=== PATIENT | female | born 1945 | race Caucasian/White ===

== ENCOUNTER 2016-07-07 16:34 | Emergency (ER) | payer BC, MEDICARE ==
[2016-07-07 16:47] VITALS: BMI 25.4
[2016-07-07 16:49] VITALS: TEMP 98.8
--- NOTE | 2016-07-07 17:39 | ED PDOC ---
Arrival/HPI - General Historian: Patient - History of Present Illness Time/Duration: 4-6 hours <Hernán Tang - Last Filed: 07/07/16 18:08> <Aniket Taylor - Last Filed: 07/07/16 18:46> - General Chief Complaint: Dizziness/Lightheaded Time Seen by Provider: 07/07/16 16:38 - History of Present Illness Narrative History of Present Illness (Text): 07/07/16 17:31 71 y/o female with hx HTN, HLD, gastritis, seasonal allergies presenting with complaints of a persistent headache which started this morning. Patient localizes her headache to the frontal and periorbital area bilaterally and states it is aching in nature. She denies any aura, focal deficits, fever, chills or head trauma. Patient also notes left distal extremity and hand paresthesias earlier today. Numbness and tingling were associated with an episode of anxiety. These symptoms lasted about 1 to 2 hours before resolving spontaneously. In addition the patient is complaining of bilateral eye redness, itching and watering. She was treated by an ophthamologist about 3 weeks ago with what she thinks were antibiotic eye drops for 7 days. The patient experienced relief of symptoms for about one week with the medication before they returned. Patient was admitted here for similar complaints on 02/18/17. The patient was seen by neurology at the time and determined to be suffering from tension headaches complicated by chronic sinusitis. She was prescribed Fioricet and Flonase. (Hernán Tang) Past Medical History - Provider Review Nursing Documentation Reviewed: Yes - Infectious Disease Hx of Infectious Diseases: None - Tetanus Immunization Tetanus Immunization: Unknown - Reproductive Menopause: Yes - Cardiac Hx Hypertension: Yes - Pulmonary Hx Respiratory Disorders: No - Neurological Hx Dizziness: Yes - HEENT Hx HEENT Disorder: No - Renal Hx Renal Disorder: No - Endocrine/Metabolic Hx Endocrine Disorders: No - Hematological/Oncological Hx Blood Disorders: No - Integumentary Hx Dermatological Disorder: No - Musculoskeletal/Rheumatological Hx Arthritis: Yes - Gastrointestinal Hx Diverticulitis: Yes Hx Gastroesophageal Reflux: Yes Other/Comment: abdominal pain - Genitourinary/Gynecological Hx Genitourinary Disorders: No - Psychiatric Hx Anxiety: Yes Hx Depression: Yes Hx Substance Use: No - Past Surgical History Past Surgical History: Non-Contributing - Surgical History Other/Comment: 1989' broken nose surgery. 1999' right shoulder surgery. 2001 Tummy tuck - Anesthesia Hx Anesthesia: Yes Hx Anesthesia Reactions: No Hx Malignant Hyperthermia: No - Suicidal Assessment Feels Threatened In Home Enviroment: No <Hernán Tang - Last Filed: 07/07/16 18:08> Family/Social History - Physician Review Nursing Documentation Reviewed: Yes Family/Social History: Unknown Family HX Smoking Status: Former Smoker Hx Alcohol Use: Yes Hx Substance Use: No Hx Substance Use Treatment: No <Hernán Tang - Last Filed: 07/07/16 18:08> Allergies/Home Meds <Hernán Tang - Last Filed: 07/07/16 18:08> <Aniket Taylor - Last Filed: 07/07/16 18:46> Allergies/Adverse Reactions: Allergies Penicillins Allergy (Verified 06/22/15 03:02) RASH Home Medications: Home Meds Medication Instructions Recorded Confirmed Cholecalciferol (Vitamin D3) 2,000 iu PO DAILY 10/27/14 07/07/16 [Vitamin D3] Losartan [Cozaar] 20 mg PO DAILY 10/27/14 07/07/16 Famotidine [Pepcid] 20 mg PO DAILY 02/19/16 07/07/16 Simvastatin [Zocor] 20 mg PO DAILY 07/07/16 07/07/16 Review of Systems - Physician Review All systems were reviewed & negative as marked: Yes - Review of Systems Constitutional: absent: Fatigue, Fevers Eyes: Other (itching, tearing ). absent: Vision Changes, Photophobia Respiratory: absent: SOB, Cough, Sputum Cardiovascular: absent: Chest Pain, GONGORA Gastrointestinal: absent: Abdominal Pain, Diarrhea, Nausea, Vomiting Genitourinary Female: absent: Dysuria, Frequency, Hematuria Musculoskeletal: absent: Back Pain, Neck Pain Skin: absent: Rash, Pruritis, Skin Lesions Neurological: Headache. absent: Dizziness, Focal Weakness, Disequilibrium, Seizure Psychiatric: Anxiety. absent: Depression <Hernán Tang - Last Filed: 07/07/16 18:08> Physical Exam Vital Signs Reviewed: Yes Temperature: Afebrile Blood Pressure: Normal Pulse: Regular Respiratory Rate: Normal Appearance: Positive for: Well-Appearing, Non-Toxic Pain Distress: None Mental Status: Positive for: Alert and Oriented X 3 Finger Stick Blood Glucose: 89 - Systems Exam Head: Present: Atraumatic, Normocephalic Pupils: Present: PERRL Extroacular Muscles: Present: EOMI Conjunctiva: Present: Injected (bilateral ), Other (excessive tearing ) Mouth: Present: Moist Mucous Membranes Neck: Present: Normal Range of Motion. No: Meningeal Signs Respiratory/Chest: Present: Clear to Auscultation, Good Air Exchange. No: Respiratory Distress Cardiovascular: Present: Regular Rate and Rhythm, Normal S1, S2 Abdomen: Present: Normal Bowel Sounds. No: Tenderness, Distention Upper Extremity: Present: Normal Inspection, Normal ROM, NORMAL PULSES. No: Cyanosis, Edema Lower Extremity: Present: Normal Inspection, NORMAL PULSES. No: Edema, CALF TENDERNESS Neurological: Present: GCS=15, CN II-XII Intact, Speech Normal, Motor Func Grossly Intact Skin: Present: Warm, Dry Psychiatric: Present: Alert, Oriented x 3, Normal Insight, Normal Concentration <Hernán Tang - Last Filed: 07/07/16 18:08> Vital Signs Temp Pulse Resp BP Pulse Ox 07/07/16 17:00 136/89 07/07/16 16:47 98.8 F 79 17 148/79 97 Medical Decision Making <Hernán Tang - Last Filed: 07/07/16 18:08> <Aniket Taylor - Last Filed: 07/07/16 18:46> ED Course and Treatment: 07/07/16 17:41 71 y/o female with hx HTN, gastritis, seasonal allergies presenting with a tension headache related to chronic sinusitis and seasonal allergies. Patient has been diagnosed with tension headaches in the past by neurology. The distribution and presentation of patients complaints are consistent with this diagnosis. In regards to patient's injected conjunctiva, she will need to be seen by her ophthamologist for re-evaluation. Will treat patient's headache with Tylenol and reassess. Left distal extremity parasthesias are now resolved and were likely secondary to anxiety/panic attack event. (Hernán Tang) 07/07/16 18:43 71-year-old female presents the emergency department with bilateral eye redness , frontal head/sinus pressure. Patient states that she has had these symptoms in the past, and has been diagnosed with allergy symptoms and headaches. Patient states that the symptoms are identical to previous. Since the headache is not the worse headache of her life and she has had this type of headache in the past. Patient was complaining of unilateral upper extremity numbness, states this came on during her anxiety/panic attack, states the symptoms are similar to her previous anxiety attacks which she has had in the past. On examination patient has no focal neurological deficits. Patient seen and examined with resident Came up with treatment and disposition plan with resident (Aniket Taylor) - Medication Orders Current Medication Orders: Discontinued Medications Acetaminophen (Tylenol 325mg Tab) 650 mg PO STAT STA Stop: 07/07/16 17:28 Last Admin: 07/07/16 17:37 Dose: 650 MG MAR Pain/Vitals Document 07/07/16 17:37 EWO (Rec: 07/07/16 17:39 EWO [id number]) Pain Reassessment Is This A Pain ReAssessment? No Sleep Is patient sleeping during reassessment? No Presence of Pain Presence of Pain Yes Pain Scale Used Pain Scale Used Numeric Location Pain Location Body Power[employer] Description Constant Intensity 4 Scale Used Numeric Disposition/Present on Arrival - Present on Arrival History of DVT/PE: No History of Uncontrolled Diabetes: No Urinary Catheter: No History of Decub. Ulcer: No History Surgical Site Infection Following: None <Hernán Tang - Last Filed: 07/07/16 18:08> - Present on Arrival Any Indicators Present on Arrival: Yes - Disposition Have Diagnosis and Disposition been Completed?: Yes Disposition Time: 18:46 Patient Plan: Discharge <Aniket Taylor - Last Filed: 07/07/16 18:46> - Disposition Diagnosis: Headache Disposition: HOME/ ROUTINE Patient Problems: Current Active Problems Problem Status Diagnosed Abdominal pain Acute GI bleed Acute Nausea, vomiting, and diarrhea Acute Condition: GOOD Discharge Instructions (ExitCare): Tension Headache (ED) Additional Instructions: Please see your ophthamologist for continued management of your eye symptoms. Please see your family physician for continued managemen of your headaches. You are prescribed an antibiotic eye ointment called Erythromycin. Apply this gel to both eyes twice daily for 7 days. You are prescribed Flonase nasal spray. Apply 2 sprays in each nostril daily. Prescriptions: Erythromycin 0.5% [Ilytocin] 3.5 gm OP Q12H #1 tube Fluticasone Propionate [Flonase] 2 spr IN DAILY #1 bottle Referrals: Javed Urban [Primary Care Provider] - Follow up with primary
[2016-07-07 18:44] VITALS: BP 150/74; PULSE 82; RESP 18; O2SAT 99
--- NOTE | 2016-07-08 12:17 | CARD ---
APPROVED REPORT EKG Measurement Heart [id number] <Conclusion> Normal sinus rhythm Normal ECG
== END 2016-07-07 18:44 | disposition home or self-care (01) ==
LOC: ED 16:34
DX: R51 Headache (principal); I10 Essential (primary) hypertension; K21.9 Gastro-esophageal reflux disease without esophagitis; Z87.891 Personal history of nicotine dependence

== ENCOUNTER 2016-10-20 23:04 | Emergency (ER) | payer BC, MEDICARE ==
[2016-10-20 23:05] VITALS: BMI 25.4
[2016-10-20 23:22] VITALS: RESP 18; TEMP 97.8; O2SAT 95
--- NOTE | 2016-10-20 23:32 | ED PDOC ---
Arrival/HPI - General Chief Complaint: Back Pain Time Seen by Provider: 10/20/16 23:22 Historian: Patient - History of Present Illness Narrative History of Present Illness (Text): 10/20/16 23:30 71 year old female, whose past medical history includes history of hypertension , hyperlipidemia, and gastritis, who presents to the emergency department complaining of right-sided lower back pain for 3 days. Patient states she began experiencing right-sided lower back pain 3 days prior but worsened tonight after getting out of bed. Patient states pain is sharp and radiates down her right leg. She reports she has not taken medication for pain. Patient denies of any chest pain, abdominal pain, nausea, vomiting, diarrhea, shortness of breath, urinary symptoms, fever, chills, or any other complaints. Time/Duration: < week (3 days) Symptom Onset: Gradual Symptom Course: Worsening Quality: Other (Sharp) Activities at Onset: Light Context: Home Past Medical History - Provider Review Nursing Documentation Reviewed: Yes - Infectious Disease Hx of Infectious Diseases: None - Tetanus Immunization Tetanus Immunization: Unknown - Cardiac Hx Hypertension: Yes - Pulmonary Hx Respiratory Disorders: No - Neurological Hx Dizziness: Yes - HEENT Hx HEENT Disorder: No - Renal Hx Renal Disorder: No - Endocrine/Metabolic Hx Endocrine Disorders: No - Hematological/Oncological Hx Blood Disorders: No - Integumentary Hx Dermatological Disorder: No - Musculoskeletal/Rheumatological Hx Arthritis: Yes - Gastrointestinal Hx Diverticulitis: Yes Hx Gastroesophageal Reflux: Yes Other/Comment: abdominal pain - Genitourinary/Gynecological Hx Genitourinary Disorders: No - Psychiatric Hx Anxiety: Yes Hx Depression: Yes Hx Substance Use: No - Past Surgical History Past Surgical History: Non-Contributing - Surgical History Other/Comment: 1989' broken nose surgery. 1999's right shoulder surgery. 2001 Tummy tuck - Anesthesia Hx Anesthesia: Yes Hx Anesthesia Reactions: No Hx Malignant Hyperthermia: No - Suicidal Assessment Feels Threatened In Home Enviroment: No Family/Social History - Physician Review Nursing Documentation Reviewed: Yes Family/Social History: No Known Family HX Smoking Status: Former Smoker Hx Alcohol Use: Yes Hx Substance Use: No Hx Substance Use Treatment: No Allergies/Home Meds Allergies/Adverse Reactions: Allergies Penicillins Allergy (Verified 06/22/15 03:02) RASH Home Medications: Home Meds Medication Instructions Recorded Confirmed Cholecalciferol (Vitamin D3) 2,000 iu PO DAILY 10/27/14 10/20/16 [Vitamin D3] Losartan [Cozaar] 20 mg PO DAILY 10/27/14 10/20/16 Famotidine [Pepcid] 20 mg PO DAILY 02/19/16 10/20/16 Simvastatin [Zocor] 20 mg PO DAILY 07/07/16 10/20/16 Review of Systems - Physician Review All systems were reviewed & negative as marked: Yes - Review of Systems Constitutional: Normal. absent: Fevers, Night Sweats Respiratory: Normal. absent: SOB, Cough Cardiovascular: Normal. absent: Chest Pain Gastrointestinal: Normal. absent: Abdominal Pain, Nausea, Vomiting Genitourinary Female: Normal. absent: Dysuria, Frequency, Hematuria, Urine Output Changes Musculoskeletal: Back Pain (right-lower back pain radiating to right lower extremity) Neurological: Normal. absent: Headache, Dizziness Physical Exam Vital Signs Reviewed: Yes Vital Signs Temp Pulse Resp BP Pulse Ox 10/21/16 01:00 67 18 125/74 95 10/20/16 23:18 97.8 F 75 18 151/78 H 95 Temperature: Afebrile Blood Pressure: Hypertensive Pulse: Regular Respiratory Rate: Normal Appearance: Positive for: Well-Appearing, Non-Toxic. No: Comfortable Pain Distress: None Mental Status: Positive for: Alert and Oriented X 3 - Systems Exam Head: Present: Atraumatic, Normocephalic Pupils: Present: PERRL Extroacular Muscles: Present: EOMI Conjunctiva: Present: Normal Mouth: Present: Moist Mucous Membranes Neck: Present: Normal Range of Motion Respiratory/Chest: Present: Clear to Auscultation, Good Air Exchange. No: Respiratory Distress, Accessory Muscle Use Cardiovascular: Present: Regular Rate and Rhythm, Normal S1, S2. No: Murmurs Abdomen: Present: Normal Bowel Sounds. No: Tenderness, Distention, Peritoneal Signs Back: Present: Pain with Leg Raise (Pain with right leg raise). No: CVA Tenderness, Midline Tenderness Upper Extremity: Present: Normal Inspection. No: Cyanosis, Edema Lower Extremity: Present: Normal Inspection, NORMAL PULSES, Normal ROM, Neurovascularly Intact, Capillary Refill < 2 s. No: Edema, Cyanosis, Tenderness , Swelling, Erythema, Deformity, Temperature Abnormalties Neurological: Present: GCS=15, CN II-XII Intact, Speech Normal, Motor Func Grossly Intact, Normal Sensory Function Skin: Present: Warm, Dry, Normal Color. No: Rashes Psychiatric: Present: Alert, Oriented x 3, Normal Insight, Normal Concentration Medical Decision Making ED Course and Treatment: 10/20/16 23:32 Impression: 71 year old female with sharp right lower back pain radiating to right leg. Differential Diagnosis included but are not limited to: sciatica vs. muscular strain Plan: -- CT Lumbar Spine -- Toradol -- Labs -- Urinalysis -- Reassess and disposition Prior Visits: Notes and results from previous visits were reviewed. Patient was last seen in the emergency department on 07/07/2016 complaining of persistent headache. Pt was d/c home. Progress Notes: 10/21/16 00:56 CT Lumbar Spine: Vertebrae: No acute fracture. Mild anterolisthesis L5 on S1. Facet osteoarthrosis within lower lumbar spine. Discs/spinal canal/neural foramina: Minimal spondylosis. Minimal disc bulges. Mild central canal stenosis at L4-L5 level. Mild neuroforaminal narrowing at L3-L4, L4-L5 levels. Other bones/joints: Mild degenerative changes of sacroiliac joints. Soft tissues: Unremarkable. Vasculature: Minimal atherosclerotic disease. Liver: Small hepatic calcification. Hepatic cyst. Kidneys and ureters: Few small calculi within LEFT kidney. Few peripelvic cysts. Stomach and bowel: Colonic diverticula. Reproductive: Hysterectomy. IMPRESSION: 1. No fracture. 2. If back pain persists, consider MRI for further evaluation. 3. Incidental/non-acute findings are described above. 10/21/16 00:58 On reevaluation the patient feels better and is in no acute distress. I have discussed the results and plan with the patient, who expresses understanding. Patient given the opportunity to ask question, all questions were answered and there is agreement with the plan to discharge the patient home. Patient is stable for discharge. Patient was instructed to follow up with physician/clinic in 1-2 days or return if symptoms persist/worsen or new concerning symptoms arise. Re-evaluation Time: 00:58 Reassessment Condition: Re-examined, Improved - Lab Interpretations Lab Results: 10/20/16 23:30 10/20/16 23:30 Lab Results 10/21/16 00:20: Urine Color Straw, Urine Appearance Clear, Urine pH 6.5, Ur Specific [place] <= 1.005, Urine Protein Negative, Urine Glucose (UA) Negative, Urine Ketones Negative, Urine Blood Small H, Urine Nitrate Negative, Urine Bilirubin Negative, Urine Urobilinogen 0.2, Ur Leukocyte Esterase Small H, Urine RBC 5 - 10, Urine WBC 2 - 5, Ur Epithelial Cells 6 - 8 10/20/16 23:30: Sodium 138, Potassium 4.2, Chloride 103, Carbon Dioxide 27, Anion Gap 12, BUN 20, Creatinine 0.7, Est GFR ( Amer) > 60, Est GFR (Non- Af Amer) > 60, Random Glucose 103, Calcium 9.4, Total Bilirubin 0.5, AST 38, ALT 33, Alkaline Phosphatase 109, Total Protein 7.2, Albumin 4.1, Globulin 3.1, Albumin/Globulin Ratio 1.3 10/20/16 23:30: WBC 5.5, RBC 3.66, Hgb 11.1 L, Hct 33.3 L, MCV 91.0, MCH 30.3, MCHC 33.3, RDW 13.2, Plt Count 229, MPV 9.5, Gran % 66.9, Lymph % (Auto) 23.6, Andrews % (Auto) 6.4 H, Eos % (Auto) 2.9, Baso % (Auto) 0.2, Gran # 3.68, Lymph # 1.3, Andrews # 0.4, Eos # 0.2, Baso # 0.01 I have reviewed the lab results: Yes - RAD Interpretation Radiology Orders: 10/20/16 23:30 LUMBAR SPINE W/O CONTRAST [CT] Stat Accounting System Expert: Radiologist - Medication Orders Current Medication Orders: Discontinued Medications Ketorolac Tromethamine (Toradol) 15 mg IVP ONCE ONE Stop: 10/20/16 23:32 Last Admin: 10/20/16 23:35 Dose: 15 mg - Cristianibe Statement The provider has reviewed the documentation as recorded by the Nataly Abdalla training under Zahida Caballero All medical record entries made by the Nataly were at my direction and personally dictated by me. I have reviewed the chart and agree that the record accurately reflects my personal performance of the history, physical exam, medical decision making, and the department course for this patient. I have also personally directed, reviewed, and agree with the discharge instructions and disposition. Disposition/Present on Arrival - Present on Arrival Any Indicators Present on Arrival: No History of DVT/PE: No History of Uncontrolled Diabetes: No Urinary Catheter: No History of Decub. Ulcer: No History Surgical Site Infection Following: None - Disposition Have Diagnosis and Disposition been Completed?: Yes Diagnosis: Sciatic leg pain Disposition: HOME/ ROUTINE Disposition Time: 00:58 Condition: GOOD Discharge Instructions (ExitCare): Sciatica (ED) Prescriptions: Tramadol HCl [Ultram] 50 mg PO QID #10 tab Referrals: Javed Urban [Primary Care Provider] - Follow up with primary
[2016-10-20 23:51] LABS: BASO # 0.01 K/mm3 (0.0-2.0); BASO % 0.2 % (0.0-3.0); EOS # 0.2 (0.0-0.7); EOS % 2.9 % (1.5-5.0); GRAN # 3.68 (1.4-6.5); GRAN % 66.9 % (50.0-68.0); HEMOGLOBIN 11.1 gm/dL (12.0-16.0); LYMPH # 1.3 (1.2-3.4); LYMPH % 23.6 % (22.0-35.0); MEAN CORPUSCULAR HEMOGLOBIN 30.3 pg (25.0-35.0); MEAN CORPUSCULAR HGB CONC 33.3 g/dl (31.0-37.0); MEAN PLATELET VOLUME 9.5 fl (7.0-11.0); MONO # 0.4 (0.1-0.6); MONO % 6.4 % (1.0-6.0); PLATELET COUNT 229 10^3/uL (120.0-450.0); RBC 3.66 10^6/uL (3.5-6.1); RED CELL DISTRIBUTION WIDTH 13.2 % (11.5-14.5); WHITE BLOOD COUNT 5.5 10^3/ul (4.5-11.0)
[2016-10-21 00:02] LABS: ALB/GLOB RATIO 1.3 (1.1-1.8); ALBUMIN 4.1 g/dL (3.0-4.8); ALT/SGPT 33 U/L (7-56); AST/SGOT 38 U/L (15-39); BLOOD UREA NITROGEN 20 mg/dL (7-21); CALCIUM 9.4 mg/dL (8.4-10.5); GFR AFRICAN-AMERICAN > 60; GFR NON-AFRICAN AMERICAN > 60
[2016-10-21 00:34] LABS: PH,URINE 6.5 (4.7-8.0); URINE BILIRUBIN NEGATIVE (NEGATIVE); URINE BLOOD SMALL (NEGATIVE); URINE GLUCOSE (UA) NEGATIVE (NEGATIVE); URINE LEUKOCYTE ESTERASE SMALL Leu/uL (NEGATIVE); URINE NITRATE NEGATIVE (NEGATIVE); URINE PROTEIN NEGATIVE mg/dL (<30 mg/dL); URINE UROBILINOGEN 0.2 E.U./dL (<1 E.U./dL)
--- NOTE | 2016-10-21 00:36 | CT ---
EXAM: CT Lumbar Spine Without Intravenous Contrast CLINICAL HISTORY: 71 years old, female; Pain; Low back pain TECHNIQUE: Axial computed tomography images of the lumbar spine without intravenous contrast. This CT exam was performed using one or more of the following dose reduction techniques: automated exposure control, adjustment of the mA and/or kV according to patient size, and/or use of iterative reconstruction technique. Coronal and sagittal reformatted images were created and reviewed. COMPARISON: US - CAROTID VERTEBRAL DUPLEX 02/21/2016 11:15:46 AM FINDINGS: Vertebrae: No acute fracture. Mild anterolisthesis L5 on S1. Facet osteoarthrosis within lower lumbar spine. Discs/spinal canal/neural foramina: Minimal spondylosis. Minimal disc bulges. Mild central canal stenosis at L4-L5 level. Mild neuroforaminal narrowing at L3-L4, L4-L5 levels. Other bones/joints: Mild degenerative changes of sacroiliac joints. Soft tissues: Unremarkable. Vasculature: Minimal atherosclerotic disease. Liver: Small hepatic calcification. Hepatic cyst. Kidneys and ureters: Few small calculi within LEFT kidney. Few peripelvic cysts. Stomach and bowel: Colonic diverticula. Reproductive: Hysterectomy. IMPRESSION: 1. No fracture. 2. If back pain persists, consider MRI for further evaluation. 3. Incidental/non-acute findings are described above.
[2016-10-21 00:40] LABS: URINE APPEARANCE CLEAR (CLEAR); URINE COLOR STRAW (YELLOW)
[2016-10-21 01:01] VITALS: BP 125/74; PULSE 67
== END 2016-10-21 01:10 | disposition home or self-care (01) ==
LOC: ED 23:04
DX: M54.30 Sciatica, unspecified side (principal); Z87.891 Personal history of nicotine dependence; I10 Essential (primary) hypertension; E78.5 Hyperlipidemia, unspecified
CPT/HCPCS: 72131; 80053; 81001; 85025; 87086; 96374; 99283; J1885

== ENCOUNTER 2017-06-08 05:49 | Emergency (ER) | payer BC, MEDICARE ==
[2017-06-08 06:00] VITALS: BMI 26.4
[2017-06-08 06:01] VITALS: TEMP 99.1
--- NOTE | 2017-06-08 06:50 | ED PDOC ---
Arrival/HPI - General Chief Complaint: Shortness Of Breath Time Seen by Provider: 06/08/17 06:41 Historian: Patient - History of Present Illness Narrative History of Present Illness (Text): 72F pmhx significant for HTN, HLD, [place] [facility] [place] w/ difficulty breathing, shortness of breath, and the "feeling of phlem stuck in the middle of the chest " that started on Saturday (06/04/17) for 4 days. Patient states that she was traveling from [facility] when the coughing started. Clear productive cough. Denies pleuritic chest pain. Denies current: fevers, chills, chest pain, nausea, vomiting, diarrhea, changes in urinary/bowel habits, vision changes, numbness/tingling in extremities PMH: stated above PSH: Shoulder sgx, hysterectomy, tubal ligation, liposuction, facelift ALL: NKDA Socialhx: Denies tobacco, etoh, recreational drug use Time/Duration: < week Symptom Course: Unchanged Past Medical History - Provider Review Nursing Documentation Reviewed: Yes - Travel History Have you recently traveled outside [place] w/in the past 3 mons?: Yes If Yes, travel location?: [facility] - Infectious Disease Hx of Infectious Diseases: None - Tetanus Immunization Tetanus Immunization: Unknown - Cardiac Hx Hypertension: Yes - Pulmonary Hx Respiratory Disorders: No - Neurological Hx Dizziness: Yes - HEENT Hx HEENT Disorder: No - Renal Hx Renal Disorder: No - Endocrine/Metabolic Hx Endocrine Disorders: No - Hematological/Oncological Hx Blood Disorders: No - Integumentary Hx Dermatological Disorder: No - Musculoskeletal/Rheumatological Hx Arthritis: Yes - Gastrointestinal Hx Diverticulitis: Yes Hx Gastroesophageal Reflux: Yes Other/Comment: abdominal pain - Genitourinary/Gynecological Hx Genitourinary Disorders: No - Psychiatric Hx Anxiety: Yes Hx Depression: Yes Hx Substance Use: No - Past Surgical History Past Surgical History: Non-Contributing - Surgical History Other/Comment: 1989's broken nose surgery. 1999' right shoulder surgery. 2001 Tummy tuck - Anesthesia Hx Anesthesia: Yes Hx Anesthesia Reactions: No Hx Malignant Hyperthermia: No - Suicidal Assessment Feels Threatened In Home Enviroment: No Family/Social History - Physician Review Nursing Documentation Reviewed: Yes Family/Social History: Other (non-contributory) Smoking Status: Former Smoker Hx Alcohol Use: Yes Frequency of alcohol use: Socially Hx Substance Use: No Hx Substance Use Treatment: No Allergies/Home Meds Allergies/Adverse Reactions: Allergies Penicillins Allergy (Verified 06/08/17 05:57) RASH Home Medications: Home Meds Medication Instructions Recorded Confirmed Cholecalciferol (Vitamin D3) 2,000 iu PO DAILY 10/27/14 06/08/17 [Vitamin D3] Losartan [Cozaar] 20 mg PO DAILY 10/27/14 06/08/17 Famotidine [Pepcid] 20 mg PO DAILY 02/19/16 06/08/17 Simvastatin [Zocor] 20 mg PO DAILY 07/07/16 06/08/17 Review of Systems - Physician Review All systems were reviewed & negative as marked: Yes - Review of Systems Constitutional: absent: Fatigue, Weight Change, Fevers Eyes: absent: Vision Changes, Photophobia ENT: absent: Hearing Changes, Tinnitus Respiratory: SOB, Cough, Sputum (clear). absent: Wheezing Cardiovascular: absent: Chest Pain, Palpitations, Edema, Calf Pain Gastrointestinal: absent: Abdominal Pain, Stool Changes, Constipation, Vomiting Genitourinary Female: absent: Dysuria Musculoskeletal: absent: Arthralgias, Neck Pain Neurological: Headache (2/2 increased coughing) Endocrine: absent: Polyuria, Polydipsia Hemo/Lymphatic: absent: Adenopathy Psychiatric: absent: Anxiety Physical Exam Vital Signs Reviewed: Yes Vital Signs Temp Pulse Resp BP Pulse Ox 06/08/17 06:10 22 97 06/08/17 06:00 99.1 F 83 14 122/89 97 Temperature: Afebrile Blood Pressure: Normal Pulse: Regular Respiratory Rate: Normal Appearance: Positive for: Well-Appearing, Non-Toxic, Comfortable Pain Distress: None Mental Status: Positive for: Alert and Oriented X 3 - Systems Exam Head: Present: Atraumatic, Normocephalic Pupils: Present: PERRL Extroacular Muscles: Present: EOMI Conjunctiva: Present: Normal Mouth: Present: Moist Mucous Membranes Nose (Internal): Present: Other (Maxillary sinus tenderness) Neck: Present: Normal Range of Motion Respiratory/Chest: Present: Clear to Auscultation, Good Air Exchange, Decreased Breath Sounds (base of lungs). No: Respiratory Distress, Accessory Muscle Use, Wheezes Cardiovascular: Present: Regular Rate and Rhythm, Normal S1, S2. No: Murmurs Abdomen: Present: Other (soft). No: Tenderness, Distention, Peritoneal Signs Upper Extremity: Present: Normal Inspection, Normal ROM, NORMAL PULSES. No: Cyanosis, Edema Lower Extremity: Present: Normal Inspection, NORMAL PULSES. No: Edema, CALF TENDERNESS, Cedric's Sign, Tenderness Neurological: Present: GCS=15, Speech Normal Skin: Present: Warm, Normal Color. No: Rashes Lymphatic: No: Cervical Adenopathy Psychiatric: Present: Alert, Oriented x 3, Normal Concentration Medical Decision Making ED Course and Treatment: Neno-neb CXR/EKG CBC/CMP/BMP/Mag blood culture Rapid Flu CT angio UA 06/08/17 07:00 Patient signed out to Dr. Toussaint; pending Labs and Rads - RAD Interpretation Radiology Orders: 06/08/17 06:42 CHEST PORTABLE [RAD] Stat 06/08/17 06:43 ANGIO CHEST PE PROTOCOL [CT] Stat - EKG Interpretation EKG Interpretation (Text): 06/08/17 07:01 NSR; No EKG abnormalities Interpreted by ED Physician: Yes Type: 12 lead EKG Comparison: Similar to previous EKG Disposition/Present on Arrival - Present on Arrival Any Indicators Present on Arrival: No History of DVT/PE: No History of Uncontrolled Diabetes: No Urinary Catheter: No History of Decub. Ulcer: No History Surgical Site Infection Following: None - Disposition Have Diagnosis and Disposition been Completed?: Yes Diagnosis: Shortness of breath Patient Problems: Current Active Problems Problem Status Onset Shortness of breath Acute Condition: STABLE Referrals: Javed Urban [Primary Care Provider] - Follow up with primary Forms: [employer] (New Zealander)
[2017-06-08] MEDS ORDERED: guaiFENesin 600 mg ER Tab PO ONE (07:10)
[2017-06-08 07:13] LABS: BASO # 0.01 K/mm3 (0.0-2.0); BASO % 0.2 % (0.0-3.0); EOS # 0.2 (0.0-0.7); EOS % 2.9 % (1.5-5.0); GRAN # 4.01 (1.4-6.5); GRAN % 63.8 % (50.0-68.0); HEMOGLOBIN 12.1 g/dL (12.0-16.0); LYMPH # 1.7 (1.2-3.4); LYMPH % 27.2 % (22.0-35.0); MEAN CORPUSCULAR HEMOGLOBIN 30.4 pg (25.0-35.0); MEAN CORPUSCULAR HGB CONC 32.7 g/dl (31.0-37.0); MEAN PLATELET VOLUME 9.8 fl (7.0-11.0); MONO # 0.4 (0.1-0.6); MONO % 5.9 % (1.0-6.0); RBC 3.98 10^6/uL (3.5-6.1); RED CELL DISTRIBUTION WIDTH 13.6 % (11.5-14.5); WHITE BLOOD COUNT 6.3 10^3/ul (4.5-11.0)
[2017-06-08 07:28] LABS: ALB/GLOB RATIO 1.3 (1.1-1.8); ALBUMIN 3.9 g/dL (3.0-4.8); ALT/SGPT 46 U/L (7-56); AST/SGOT 33 U/L (14-36); BLOOD UREA NITROGEN 15 mg/dL (7-21); CALCIUM 9.5 mg/dL (8.4-10.5); GFR AFRICAN-AMERICAN > 60; GFR NON-AFRICAN AMERICAN > 60
[2017-06-08 07:39] LABS: B-TYPE NATRIURETIC PEPTIDE 111 pg/mL (0-450); TROPONIN I < 0.01 ng/mL
[2017-06-08] MEDS ORDERED: Iohexol 350 MG/100 ML VIAL ONE (08:18)
--- NOTE | 2017-06-08 09:24 | CT ---
PROCEDURE: CT Chest with contrast (Pulmonary Angiogram) HISTORY: r/o PE COMPARISON: June 08, 2017. Single-view chest TECHNIQUE: Axial computed tomography images were obtained of the chest in the pulmonary arterial phase of enhancement. Coronal and sagittal reformatted images were created and reviewed. Intravenous contrast dose: 100 cc Omnipaque 350 Mean Hounsfield unit values in the main pulmonary artery: 248.48 Radiation dose: Total exam DLP = 345.31 mGy-cm. This CT exam was performed using one or more of the following dose reduction techniques: Automated exposure control, adjustment of the mA and/or kV according to patient size, and/or use of iterative reconstruction technique. FINDINGS: PULMONARY ARTERIES: Unremarkable. No pulmonary embolism. AORTA: No acute findings. No thoracic aortic aneurysm. LUNGS: Unremarkable. No nodule, mass or pulmonary consolidation. PLEURAL SPACES: Unremarkable. No effusion or pneuomothorax. HEART: Unremarkable. No cardiomegaly. No significant pericardial effusion. LYMPH NODES: No lymphadenopathy. BONES, CHEST WALL: Unremarkable. No fracture or destructive lesion OTHER FINDINGS: Simple cyst left hepatic lobe 1.6 cm. IMPRESSION: Unremarkable CT pulmonary angiogram. No pulmonary embolus.
--- NOTE | 2017-06-08 09:59 | RAD ---
HISTORY: Cough COMPARISON: 02/19/2016 FINDINGS: LUNGS: No active pulmonary disease. PLEURA: No significant pleural effusion identified, no pneumothorax apparent. CARDIOVASCULAR: Normal. OSSEOUS STRUCTURES: No significant abnormalities. VISUALIZED UPPER ABDOMEN: Normal. OTHER FINDINGS: None. IMPRESSION: No active disease. Micro change
--- NOTE | 2017-06-08 10:11 | ED PDOC ---
Physical Exam Vital Signs Reviewed: Yes Vital Signs Temp Pulse Resp BP Pulse Ox 06/08/17 06:10 22 97 06/08/17 06:00 99.1 F 83 14 122/89 97 Temperature: Afebrile Appearance: Positive for: Well-Appearing, Non-Toxic, Comfortable Mental Status: Positive for: Alert and Oriented X 3 - Systems Exam Head: Present: Atraumatic Mouth: Present: Moist Mucous Membranes, Normal Lips, Normal Tounge Pharnyx: Present: Normal. No: ERYTHEMA, EXUDATE, TONSILS ENLARGED, Peritonsilar Swelling, Uvular Deviation, Muffled/Hoarse Voice, Strider Nose (Internal): Present: Rhinorrhea Neck: Present: Normal Range of Motion. No: Meningeal Signs Respiratory/Chest: Present: Clear to Auscultation. No: Respiratory Distress, Wheezes, Decreased Breath Sounds Back: No: CVA Tenderness Lower Extremity: No: Edema Medical Decision Making ED Course and Treatment: 06/08/17 10:08 Patient endorsed to me from previous shift. Patient re-evaluated by med. She is afebrile. No wheezing or rhonchi. No pharyngeal erythema or edema. Saturations 97% on room air. She reports productive cough and congestion for several days. Patient cxr and ct angio unremarkable as per radiology. Given allergy to PCN will d/c with zithromax, tamilfu, advised f/u with pmd. 06/08/17 10:15 PROGRESS NOTES: PROCEDURE: CT Chest with contrast (Pulmonary Angiogram) General Science Teacher : Juarez Johnson MD Report Date : 06/08/2017 09:22:46 HISTORY:r/o PE COMPARISON:June 08, 2017. Single-view chest FINDINGS: PULMONARY ARTERIES:Unremarkable. No pulmonary embolism. AORTA:No acute findings. No thoracic aortic aneurysm. LUNGS:Unremarkable. No nodule, mass or pulmonary consolidation. PLEURAL SPACES:Unremarkable. No effusion or pneuomothorax. HEART:Unremarkable. No cardiomegaly. No significant pericardial effusion. LYMPH NODES:No lymphadenopathy. BONES, CHEST WALL:Unremarkable. No fracture or destructive lesion OTHER FINDINGS:Simple cyst left hepatic lobe 1.6 cm. IMPRESSION: Unremarkable CT pulmonary angiogram. No pulmonary embolus. Chest X-ray General Science Teacher : Juarez Johnson MD Report Date : 06/08/2017 09:57:53 HISTORY:Cough COMPARISON:02/19/2016 FINDINGS: LUNGS:No active pulmonary disease. PLEURA:No significant pleural effusion identified, no pneumothorax apparent. CARDIOVASCULAR:Normal. OSSEOUS STRUCTURES:No significant abnormalities. VISUALIZED UPPER ABDOMEN:Normal. OTHER FINDINGS:None. IMPRESSION: No active disease. Micro change - Lab Interpretations Lab Results: 06/08/17 06:20 06/08/17 06:20 Lab Results 06/08/17 06:52: Influenza Typ A,B (EIA) Negative for flu a/b 06/08/17 06:20: Sodium 142, Potassium 4.2, Chloride 106, Carbon Dioxide 28, Anion Gap 12, BUN 15, Creatinine 0.7, Est GFR ( Amer) > 60, Est GFR (Non- Af Amer) > 60, Random Glucose 105, Calcium 9.5, Magnesium 2.2, Total Bilirubin 0.5, AST 33, ALT 46, Alkaline Phosphatase 93, Lactate Dehydrogenase 433, Total Creatine Kinase 54, Troponin I < 0.01, NT-Pro-B Natriuret Pep 111, Total Protein 7.0, Albumin 3.9, Globulin 3.1, Albumin/Globulin Ratio 1.3 06/08/17 06:20: WBC 6.3, RBC 3.98, Hgb 12.1, Hct 37.0, MCV 93.0, MCH 30.4, MCHC 32.7, RDW 13.6, Plt Count 270, MPV 9.8, Gran % 63.8, Lymph % (Auto) 27.2, Leon % (Auto) 5.9, Eos % (Auto) 2.9, Baso % (Auto) 0.2, Gran # 4.01, Lymph # (Auto) 1.7, Leon # (Auto) 0.4, Eos # (Auto) 0.2, Baso # (Auto) 0.01 - RAD Interpretation Radiology Orders: 06/08/17 06:42 CHEST PORTABLE [RAD] Stat 06/08/17 06:43 ANGIO CHEST PE PROTOCOL [CT] Stat - Medication Orders Current Medication Orders: Discontinued Medications Guaifenesin (Mucinex La) 600 mg PO ONCE ONE Stop: 06/08/17 07:11 Last Admin: 06/08/17 08:10 Dose: 600 mg - Scribe Statement The provider has reviewed the documentation as recorded by the Nataly Cody Provider Scribe Attestation: All medical record entries made by the Scribe were at my direction and personally dictated by me. I have reviewed the chart and agree that the record accurately reflects my personal performance of the history, physical exam, medical decision making, and the department course for this patient. I have also personally directed, reviewed, and agree with the discharge instructions and disposition. Disposition/Present on Arrival - Present on Arrival Any Indicators Present on Arrival: No History of DVT/PE: No History of Uncontrolled Diabetes: No Urinary Catheter: No History of Decub. Ulcer: No History Surgical Site Infection Following: None - Disposition Have Diagnosis and Disposition been Completed?: Yes Diagnosis: Bronchitis Disposition: HOME/ ROUTINE Disposition Time: 10:11 Patient Plan: Discharge Patient Problems: Current Active Problems Problem Status Onset Bronchitis Acute Condition: GOOD Discharge Instructions (ExitCare): Acute Bronchitis Additional Instructions: Follow-up with Dr. Urban in 1-2 days. For any chest pain, any shortness of breath, any fevers, any abdominal pain, any rash, any difficulty swallowing, any facial swelling, any numbness or weakness, any worsening or persistence of any symptoms, get rechecked. Prescriptions: Oseltamivir Phosphate [Tamiflu] 75 mg PO BID #10 capsule Azithromycin [Zithromax] 250 mg PO DAILY #6 tab Referrals: Javed Urban [Primary Care Provider] - Follow up with primary Forms: [employer] (Congolese)
[2017-06-08 10:33] VITALS: BP 115/83; PULSE 71; RESP 18; O2SAT 96
--- NOTE | 2017-06-08 16:48 | CARD ---
APPROVED REPORT EKG Measurement Heart [id number] [place] [id number] <Conclusion> Normal sinus rhythm Normal ECG
== END 2017-06-08 10:34 | disposition home or self-care (01) ==
LOC: ED 05:49
DX: R06.02 Shortness of breath (principal); I10 Essential (primary) hypertension; Z87.891 Personal history of nicotine dependence
CPT/HCPCS: 71045; 71275; 80053; 82550; 83615; 83735; 83880; 84484; 85025; 87040; 87804; 93005; 99284; Q9967

== ENCOUNTER 2018-01-07 23:57 | Emergency (ER) | payer BC, MEDICARE ==
[2018-01-08 00:07] VITALS: BMI 25.4
[2018-01-08 00:17] VITALS: TEMP 98.1
[2018-01-08] MEDS ORDERED: Albuterol-Ipratrop 3 mg / 0.5 (3 ml) UD IH STA (00:34)
[2018-01-08 01:12] LABS: BASO # 0.03 K/mm3 (0.0-2.0); BASO % 0.6 % (0.0-3.0); EOS # 0.3 (0.0-0.7); EOS % 6.1 % (1.5-5.0); GRAN # 2.22 (1.4-6.5); HEMOGLOBIN 11.5 g/dL (12.0-16.0); LYMPH % 40.8 % (22.0-35.0); MEAN CELL VOLUME 91.8 fl (80.0-105.0); MEAN CORPUSCULAR HEMOGLOBIN 30.3 pg (25.0-35.0); MEAN PLATELET VOLUME 10.5 fl (7.0-11.0); MONO # 0.4 (0.1-0.6); MONO % 7.5 % (1.0-6.0); RBC 3.79 10^6/uL (3.5-6.1); RED CELL DISTRIBUTION WIDTH 13.2 % (11.5-14.5); WHITE BLOOD COUNT 4.9 10^3/ul (4.5-11.0)
[2018-01-08 01:19] LABS: ALB/GLOB RATIO 1.3 (1.1-1.8); ALT/SGPT 23 U/L (7-56); AST/SGOT 52 U/L (14-36); BLOOD UREA NITROGEN 16 mg/dL (7-21); CALCIUM 8.9 mg/dL (8.4-10.5); GFR NON-AFRICAN AMERICAN > 60
[2018-01-08 01:31] LABS: B-TYPE NATRIURETIC PEPTIDE 51.3 pg/mL (0-450); TROPONIN I < 0.01 ng/mL
[2018-01-08 02:17] VITALS: BP 136/71; PULSE 69; RESP 20; O2SAT 97
--- NOTE | 2018-01-08 03:04 | ED PDOC ---
Arrival/HPI - General Chief Complaint: Chest Pain Time Seen by Provider: 01/08/18 00:04 Historian: Patient - History of Present Illness Narrative History of Present Illness (Text): 01/08/18 03:04 72 year old female, whose past medical history includes history of hypertension, hyperlipidemia, and gastritis, presents to the emergency department with shortness of breath and left sided chest pain. Patient states she began having a cough earlier tonight and was having trouble clearing phlegm. Patient states she then became short of breath and started feeling chest pain. Patient informs having a recent flu shot. Patient denies any fevers, chills, headache, dizziness, palpitations, abdominal pain, nausea, vomiting, diarrhea, back pain, neck pain, urinary/bowel changes, or any other complaint. Time/Duration: Prior to Arrival Past Medical History - Provider Review Nursing Documentation Reviewed: Yes - Infectious Disease Hx of Infectious Diseases: None - Tetanus Immunization Tetanus Immunization: Unknown - Cardiac Hx Hypertension: Yes - Pulmonary Hx Respiratory Disorders: No - Neurological Hx Dizziness: Yes - HEENT Hx HEENT Disorder: No - Renal Hx Renal Disorder: No - Endocrine/Metabolic Hx Endocrine Disorders: No - Hematological/Oncological Hx Blood Disorders: No - Integumentary Hx Dermatological Disorder: No - Musculoskeletal/Rheumatological Hx Arthritis: Yes - Gastrointestinal Hx Diverticulitis: Yes Hx Gastroesophageal Reflux: Yes Other/Comment: abdominal pain - Genitourinary/Gynecological Hx Genitourinary Disorders: No - Psychiatric Hx Anxiety: Yes Hx Depression: Yes Hx Substance Use: No - Past Surgical History Past Surgical History: Non-Contributing - Surgical History Other/Comment: 1989' broken nose surgery. 1999' right shoulder surgery. 2001 Tummy tuck - Anesthesia Hx Anesthesia: Yes Hx Anesthesia Reactions: No Hx Malignant Hyperthermia: No - Suicidal Assessment Feels Threatened In Home Enviroment: No Family/Social History - Physician Review Nursing Documentation Reviewed: Yes Family/Social History: No Known Family HX Smoking Status: Former Smoker Hx Alcohol Use: Yes Hx Substance Use: No Hx Substance Use Treatment: No Allergies/Home Meds Allergies/Adverse Reactions: Allergies Penicillins Allergy (Verified 06/08/17 05:57) RASH Home Medications: Home Meds Medication Instructions Recorded Confirmed Cholecalciferol (Vitamin D3) 2,000 iu PO DAILY 10/27/14 06/08/17 [Vitamin D3] Losartan [Cozaar] 20 mg PO DAILY 10/27/14 06/08/17 Famotidine [Pepcid] 20 mg PO DAILY 02/19/16 06/08/17 Simvastatin [Zocor] 20 mg PO DAILY 07/07/16 06/08/17 Review of Systems - Physician Review All systems were reviewed & negative as marked: Yes - Review of Systems Constitutional: absent: Fevers, Night Sweats Respiratory: SOB, Cough Cardiovascular: Chest Pain. absent: Palpitations Gastrointestinal: absent: Abdominal Pain, Diarrhea, Nausea, Vomiting Genitourinary Female: absent: Urine Output Changes Musculoskeletal: absent: Back Pain, Neck Pain Neurological: absent: Headache, Dizziness Physical Exam Vital Signs Reviewed: Yes Vital Signs Temp Pulse Resp BP Pulse Ox 01/08/18 02:16 69 20 136/71 97 01/08/18 00:11 98.1 F 73 22 140/92 H 95 Temperature: Afebrile Blood Pressure: Normal Pulse: Regular Respiratory Rate: Normal Appearance: Positive for: Well-Appearing, Non-Toxic, Comfortable Pain Distress: None Mental Status: Positive for: Alert and Oriented X 3 - Systems Exam Head: Present: Atraumatic, Normocephalic Pupils: Present: PERRL Extroacular Muscles: Present: EOMI Conjunctiva: Present: Normal Mouth: Present: Moist Mucous Membranes Neck: Present: Normal Range of Motion Respiratory/Chest: Present: Clear to Auscultation, Good Air Exchange. No: Respiratory Distress, Accessory Muscle Use Cardiovascular: Present: Regular Rate and Rhythm, Normal S1, S2. No: Murmurs Abdomen: No: Tenderness, Distention, Peritoneal Signs Back: Present: Normal Inspection Upper Extremity: Present: Normal Inspection. No: Cyanosis, Edema Lower Extremity: Present: Normal Inspection. No: Edema Neurological: Present: GCS=15, CN II-XII Intact, Speech Normal Skin: Present: Warm, Dry, Normal Color. No: Rashes Psychiatric: Present: Alert, Oriented x 3, Normal Insight, Normal Concentration Medical Decision Making ED Course and Treatment: 01/08/18 03:09 Impression: 72 year old female presents with shortness of breath and left-sided chest pain. Plan: -- EKG -- Duoneb -- Chest X-ray -- Reassess and disposition Prior Visits: Notes and results from previous visits were reviewed. pt feels better post duo neb will dc - Lab Interpretations Lab Results: 01/08/18 00:35 01/08/18 00:35 Lab Results 01/08/18 00:35: Sodium 139, Potassium 3.8, Chloride 105, Carbon Dioxide 26, Anion Gap 12, BUN 16, Creatinine 0.7, Est GFR ( Amer) > 60, Est GFR (Non- Af Amer) > 60, Random Glucose 100, Calcium 8.9, Magnesium 2.2, Total Bilirubin 0.3, AST 52 H D, ALT 23, Alkaline Phosphatase 106, Lactate Dehydrogenase 526, Total Creatine Kinase 61, Troponin I < 0.01, NT-Pro-B Natriuret Pep 51.3, Total Protein 7.1, Albumin 4.0, Globulin 3.1, Albumin/Globulin Ratio 1.3 01/08/18 00:35: WBC 4.9 D, RBC 3.79, Hgb 11.5 L, Hct 34.8 L, MCV 91.8, MCH 30.3, MCHC 33.0, RDW 13.2, Plt Count 227, MPV 10.5, Gran % 45.0 L, Lymph % (Auto) 40.8 H, Camp % (Auto) 7.5 H, Eos % (Auto) 6.1 H, Baso % (Auto) 0.6, Gran # 2.22, Lymph # (Auto) 2.0, Camp # (Auto) 0.4, Eos # (Auto) 0.3, Baso # (Auto) 0.03 - RAD Interpretation Radiology Orders: 01/08/18 00:34 CHEST PORTABLE [RAD] Stat - EKG Interpretation EKG Interpretation (Text): 01/08/18 03:57 nsn [id number] normal ekg - Medication Orders Current Medication Orders: Discontinued Medications Albuterol/Ipratropium (Duoneb 3 Mg/0.5 Mg (3 Ml) Ud) 3 ml IH STAT STA Stop: 01/08/18 00:35 Last Admin: 01/08/18 01:00 Dose: 3 ml - Scribe Statement The provider has reviewed the documentation as recorded by the Cristianibe Teo Molina Provider Scribe Attestation: All medical record entries made by the Scribe were at my direction and personally dictated by me. I have reviewed the chart and agree that the record accurately reflects my personal performance of the history, physical exam, medical decision making, and the department course for this patient. I have also personally directed, reviewed, and agree with the discharge instructions and disposition. Disposition/Present on Arrival - Present on Arrival Any Indicators Present on Arrival: No History of DVT/PE: No History of Uncontrolled Diabetes: No Urinary Catheter: No History of Decub. Ulcer: No History Surgical Site Infection Following: None - Disposition Have Diagnosis and Disposition been Completed?: Yes Diagnosis: Acute bronchospasm Disposition: HOME/ ROUTINE Disposition Time: 02:15 Condition: GOOD Discharge Instructions (ExitCare): Asthma, Adult (DC) Prescriptions: Albuterol HFA [Ventolin HFA] 1 puff IH QID #1 puff Forms: [employer] (Indonesian)
--- NOTE | 2018-01-08 09:09 | CARD ---
APPROVED REPORT Date of service: 01/08/2018 EKG Measurement Heart [id number] [place] 142P61 [id number] <Conclusion> Normal sinus rhythm Normal ECG
--- NOTE | 2018-01-08 09:23 | RAD ---
Date of service: 01/08/2018 HISTORY: sob COMPARISON: 06/08/2017 FINDINGS: LUNGS: No active pulmonary disease. PLEURA: No significant pleural effusion identified, no pneumothorax apparent. CARDIOVASCULAR: Normal. OSSEOUS STRUCTURES: No significant abnormalities. VISUALIZED UPPER ABDOMEN: Normal. OTHER FINDINGS: None. IMPRESSION: No active disease.
== END 2018-01-08 02:16 | disposition home or self-care (01) ==
LOC: ED 23:57
DX: J98.01 Acute bronchospasm (principal); I10 Essential (primary) hypertension; E78.5 Hyperlipidemia, unspecified; Z87.891 Personal history of nicotine dependence

== ENCOUNTER 2018-04-08 03:19 | Emergency (ER) | payer BC, MEDICARE ==
--- NOTE | 2018-04-08 03:22 | ED PDOC ---
Arrival/HPI - General Time Seen by Provider: 04/08/18 03:21 Historian: Patient - History of Present Illness Narrative History of Present Illness (Text): 04/08/18 05:50 73 year old female, whose past medical history includes asthma, presents to the emergency department with cough, for 5 days. Patient states she has a productive cough with yellow sputum. Patient states coughing keeps her from sleeping. Patient informs having her flu shot this year. Patient denies any recent travel. Patient denies any fever, chills, shortness of breath, chest pain, abdominal pain, or any other complaints. Time/Duration: Prior to Arrival, < week Symptom Onset: Gradual Symptom Course: Unchanged Activities at Onset: Light Context: Home Past Medical History - Provider Review Nursing Documentation Reviewed: Yes - Infectious Disease Hx of Infectious Diseases: None - Tetanus Immunization Tetanus Immunization: Unknown - Cardiac Hx Hypertension: Yes - Pulmonary Hx Respiratory Disorders: No - Neurological Hx Dizziness: Yes - HEENT Hx HEENT Disorder: No - Renal Hx Renal Disorder: No - Endocrine/Metabolic Hx Endocrine Disorders: No - Hematological/Oncological Hx Blood Disorders: No - Integumentary Hx Dermatological Disorder: No - Musculoskeletal/Rheumatological Hx Arthritis: Yes - Gastrointestinal Hx Diverticulitis: Yes Hx Gastroesophageal Reflux: Yes Other/Comment: abdominal pain - Genitourinary/Gynecological Hx Genitourinary Disorders: No - Psychiatric Hx Anxiety: Yes Hx Depression: Yes Hx Substance Use: No - Past Surgical History Past Surgical History: Non-Contributing - Surgical History Other/Comment: 1989' broken nose surgery. 1999' right shoulder surgery. 2001 Tummy tuck - Anesthesia Hx Anesthesia: Yes Hx Anesthesia Reactions: No Hx Malignant Hyperthermia: No - Suicidal Assessment Feels Threatened In Home Enviroment: No Family/Social History - Physician Review Nursing Documentation Reviewed: Yes Family/Social History: No Known Family HX Smoking Status: Former Smoker Hx Alcohol Use: Yes Hx Substance Use: No Hx Substance Use Treatment: No Allergies/Home Meds Allergies/Adverse Reactions: Allergies Penicillins Allergy (Verified 04/08/18 03:52) RASH Home Medications: Home Meds Medication Instructions Recorded Confirmed Famotidine [Pepcid] 20 mg PO DAILY 02/19/16 04/08/18 Simvastatin [Zocor] 20 mg PO DAILY 07/07/16 04/08/18 Clonazepam [Klonopin] 0.5 mg PO DAILY 04/08/18 04/08/18 Levocetirizine Dihydrochloride 5 mg PO DAILY 04/08/18 04/08/18 [Xyzal] Losartan Potassium 25 mg PO DAILY 04/08/18 04/08/18 Montelukast [Singulair] 10 mg PO DAILY 04/08/18 04/08/18 Review of Systems - Physician Review All systems were reviewed & negative as marked: Yes - Review of Systems Constitutional: absent: Fevers, Night Sweats Respiratory: Cough, Sputum. absent: SOB Cardiovascular: absent: Chest Pain Gastrointestinal: absent: Abdominal Pain Physical Exam Vital Signs Reviewed: Yes Temperature: Afebrile Blood Pressure: Normal Pulse: Regular Respiratory Rate: Normal Appearance: Positive for: Well-Appearing, Non-Toxic, Comfortable Pain Distress: None Mental Status: Positive for: Alert and Oriented X 3 - Systems Exam Head: Present: Atraumatic, Normocephalic Pupils: Present: PERRL Extroacular Muscles: Present: EOMI Conjunctiva: Present: Normal Mouth: Present: Moist Mucous Membranes Neck: Present: Normal Range of Motion Respiratory/Chest: Present: Clear to Auscultation, Good Air Exchange, Wheezes (mild expiratory wheeze). No: Respiratory Distress, Accessory Muscle Use Cardiovascular: Present: Regular Rate and Rhythm, Normal S1, S2. No: Murmurs Abdomen: No: Tenderness, Distention, Peritoneal Signs Back: Present: Normal Inspection Upper Extremity: Present: Normal Inspection. No: Cyanosis, Edema Lower Extremity: Present: Normal Inspection. No: Edema Neurological: Present: GCS=15, CN II-XII Intact, Speech Normal Skin: Present: Warm, Dry, Normal Color. No: Rashes Psychiatric: Present: Alert, Oriented x 3, Normal Insight, Normal Concentration Medical Decision Making ED Course and Treatment: 04/08/18 05:55 Impression: 73 year old female presents with persistent cough. Plan: -- Chest x-ray -- Prednisone -- Reassess and disposition Prior Visits: Notes and results from previous visits were reviewed. Progress Notes: - Scribe Statement The provider has reviewed the documentation as recorded by the Nataly Molina Provider Scribe Attestation: All medical record entries made by the Scribe were at my direction and personally dictated by me. I have reviewed the chart and agree that the record accurately reflects my personal performance of the history, physical exam, medical decision making, and the department course for this patient. I have also personally directed, reviewed, and agree with the discharge instructions and disposition. Disposition/Present on Arrival - Present on Arrival Any Indicators Present on Arrival: No History of DVT/PE: No History of Uncontrolled Diabetes: No Urinary Catheter: No History Surgical Site Infection Following: None - Disposition Have Diagnosis and Disposition been Completed?: Yes Diagnosis: Asthma, Cough Disposition: HOME/ ROUTINE Disposition Time: 05:15 Condition: IMPROVED Discharge Instructions (ExitCare): Asthma, Adult (DC) Additional Instructions: MIRTHA GONZALES, thank you for letting us take care of you today. Your provider was Jarred Chan DO and you were treated for COUGH. The emergency medical care you received today was directed at your acute symptoms. If you were prescribed any medication, please fill it and take as directed. It may take several days for your symptoms to resolve. Return to the Emergency Department if your symptoms worsen, do not improve, or if you have any other problems. Please contact your doctor or call one of the physicians/clinics you have been referred to that are listed on the Patient Visit Information form that is included in your discharge packet. Bring any paperwork you were given at discharge with you along with any medications you are taking to your follow up visit. Our treatment cannot replace ongoing medical care by a primary care provider outside of the emergency department. Thank you for allowing the [facility] team to be part of your care today. Follow up with your primary care doctor in 2-3 days for re-evaluation and further management. Prescriptions: Guaifenesin [Cough Syrup] 100 mg PO Q8 PRN #1 bottle PRN Reason: Cough predniSONE [Prednisone] 40 mg PO DAILY #10 tab Referrals: Sid Ferguson MD [Primary Care Provider] - Follow up with primary Forms: [employer] ([place])
[2018-04-08 03:52] VITALS: BMI 25.3
[2018-04-08 03:58] VITALS: TEMP 98.2
[2018-04-08] MEDS: Albuterol-Ipratrop 3 mg / 0.5 (3 ml) UD IH SCH ×3 (04:47→05:05)
[2018-04-08 05:24] VITALS: BP 118/64; PULSE 98; RESP 20; O2SAT 95
--- NOTE | 2018-04-08 09:06 | RAD ---
Date of service: 04/08/2018 HISTORY: Cough COMPARISON: 01/08/2018. TECHNIQUE: Chest PA and lateral FINDINGS: LINES AND TUBES: None. LUNG AND PLEURA: The lungs are well inflated and clear. No pleural effusion or pneumothorax. HEART AND MEDIASTINUM: The heart is not enlarged. No aortic atherosclerotic calcification present. The hilar and mediastinal contours are within normal limits. SKELETAL STRUCTURES: The bony structures are within normal limits for the patient's age. There are anchor screws in the right humeral head. VISUALIZED UPPER ABDOMEN: Normal. OTHER FINDINGS: None. IMPRESSION: No active pulmonary disease.
== END 2018-04-08 05:36 | disposition home or self-care (01) ==
LOC: ED 03:19
DX: J45.909 Unspecified asthma, uncomplicated (principal); Z87.891 Personal history of nicotine dependence

== ENCOUNTER 2018-04-08 21:28 | Observation (INO) | payer BC, MEDICARE ==
[2018-04-08 21:50] VITALS: BMI 24.7
[2018-04-08] MEDS ORDERED: Sodium Chloride 0.9% 1,000 ML IV STA (22:17)
[2018-04-08 22:39] LABS: ALB/GLOB RATIO 1.4 (1.1-1.8); ALBUMIN 4.6 g/dL (3.0-4.8); ALT/SGPT 30 U/L (7-56); AST/SGOT 27 U/L (14-36); BLOOD UREA NITROGEN 18 mg/dL (7-21); CALCIUM 9.2 mg/dL (8.4-10.5); GFR NON-AFRICAN AMERICAN > 60; LIPASE 103 U/L (23-300)
[2018-04-08 22:53] LABS: HEMOGLOBIN 11.7 g/dL (12.0-16.0); MEAN CELL VOLUME 94.5 fl (80.0-105.0); MEAN CORPUSCULAR HEMOGLOBIN 30.5 pg (25.0-35.0); MEAN CORPUSCULAR HGB CONC 32.2 g/dl (31.0-37.0); MEAN PLATELET VOLUME 11.1 fl (7.0-11.0); RBC 3.84 10^6/uL (3.5-6.1); RED CELL DISTRIBUTION WIDTH 13.6 % (11.5-14.5); WHITE BLOOD COUNT 5.2 10^3/uL (4.5-11.0)
[2018-04-08 23:04] LABS: URINE APPEARANCE SLIGHT-CLOUDY (CLEAR); URINE BILIRUBIN NEGATIVE (NEGATIVE); URINE BLOOD MODERATE (NEGATIVE); URINE COLOR YELLOW (YELLOW); URINE GLUCOSE (UA) NEGATIVE (NEGATIVE); URINE LEUKOCYTE ESTERASE NEGATIVE Leu/uL (NEGATIVE); URINE PROTEIN NEGATIVE mg/dL (<30 mg/dL); URINE UROBILINOGEN 0.2 E.U./dL (<1 E.U./dL)
[2018-04-08 23:09] LABS: URINE BACTERIA MANY /hpf; URINE WBC 0 - 2 /hpf (0-6)
[2018-04-09] MEDS ORDERED: Aztreonam 1 Gm in NS 100mL 100 ML IVPB STA (00:11)
--- NOTE | 2018-04-09 00:23 | ED PDOC ---
Arrival/HPI - General Chief Complaint: Female Genitourinary Time Seen by Provider: 04/08/18 21:58 Historian: Patient - History of Present Illness Narrative History of Present Illness (Text): 04/09/18 00:20 73 year old female, whose past medical history includes asthma and hypertension, presents to the emergency department with right flank pain. Patient was recently diagnosed with UTI, secondary to E.Coli infection by her physician.. Patient was advised by PMD to come to the hospital for admission and treatment. Patient is penicillin allergic. Patient informs of some abdominal pain, and general malaise. Patient denies any known fever, chills, nausea, vomiting, or any other complaints. Time/Duration: Prior to Arrival Symptom Onset: Gradual Symptom Course: Unchanged Past Medical History - Provider Review Nursing Documentation Reviewed: Yes - Infectious Disease Hx of Infectious Diseases: None - Tetanus Immunization Tetanus Immunization: Unknown - Cardiac Hx Hypertension: Yes - Pulmonary Hx Respiratory Disorders: No - Neurological Hx Dizziness: Yes - HEENT Hx HEENT Disorder: No - Renal Hx Renal Disorder: No - Endocrine/Metabolic Hx Endocrine Disorders: No - Hematological/Oncological Hx Blood Disorders: No - Integumentary Hx Dermatological Disorder: No - Musculoskeletal/Rheumatological Hx Arthritis: Yes - Gastrointestinal Hx Diverticulitis: Yes Hx Gastroesophageal Reflux: Yes Other/Comment: abdominal pain - Genitourinary/Gynecological Hx Genitourinary Disorders: Yes Hx Urinary Tract Infection: Yes - Psychiatric Hx Anxiety: Yes Hx Depression: Yes Hx Substance Use: No - Past Surgical History Past Surgical History: Non-Contributing - Surgical History Other/Comment: 1989' broken nose surgery. 1999' right shoulder surgery. 2001 Tummy tuck - Anesthesia Hx Anesthesia: Yes Hx Anesthesia Reactions: No Hx Malignant Hyperthermia: No - Suicidal Assessment Feels Threatened In Home Enviroment: No Family/Social History - Physician Review Nursing Documentation Reviewed: Yes Family/Social History: No Known Family HX Smoking Status: Former Smoker Hx Alcohol Use: No Hx Substance Use: No Hx Substance Use Treatment: No Allergies/Home Meds Allergies/Adverse Reactions: Allergies Penicillins Allergy (Verified 04/08/18 21:57) RASH Home Medications: Home Meds Medication Instructions Recorded Confirmed Famotidine [Pepcid] 20 mg PO DAILY 02/19/16 04/08/18 Simvastatin [Zocor] 20 mg PO DAILY 07/07/16 04/08/18 Clonazepam [Klonopin] 0.5 mg PO DAILY 04/08/18 04/08/18 Levocetirizine Dihydrochloride 5 mg PO DAILY 04/08/18 04/08/18 [Xyzal] Losartan Potassium 25 mg PO DAILY 04/08/18 04/08/18 Montelukast [Singulair] 10 mg PO DAILY 04/08/18 04/08/18 Review of Systems - Physician Review All systems were reviewed & negative as marked: Yes - Review of Systems Constitutional: Fatigue (generalized malaise). absent: Fevers, Night Sweats Gastrointestinal: Abdominal Pain. absent: Nausea, Vomiting Genitourinary Female: Urine Output Changes Musculoskeletal: Back Pain (right flank pain) Physical Exam Vital Signs Reviewed: Yes Vital Signs Temp Pulse Resp BP Pulse Ox 04/08/18 21:49 98.7 F 97 H 19 160/99 H 95 Temperature: Afebrile Blood Pressure: Hypertensive Pulse: Tachycardic Respiratory Rate: Normal Appearance: Positive for: Well-Appearing, Non-Toxic, Comfortable Pain Distress: None Mental Status: Positive for: Alert and Oriented X 3 - Systems Exam Head: Present: Atraumatic, Normocephalic Pupils: Present: PERRL Extroacular Muscles: Present: EOMI Conjunctiva: Present: Normal Mouth: Present: Moist Mucous Membranes Neck: Present: Normal Range of Motion Respiratory/Chest: Present: Clear to Auscultation, Good Air Exchange. No: Respiratory Distress, Accessory Muscle Use Cardiovascular: Present: Regular Rate and Rhythm, Normal S1, S2. No: Murmurs Abdomen: No: Tenderness, Distention, Peritoneal Signs Back: Present: CVA Tenderness (Right CVA tenderness) Upper Extremity: Present: Normal Inspection. No: Cyanosis, Edema Lower Extremity: Present: Normal Inspection. No: Edema Neurological: Present: GCS=15, CN II-XII Intact, Speech Normal Skin: Present: Warm, Dry, Normal Color. No: Rashes Psychiatric: Present: Alert, Oriented x 3, Normal Insight, Normal Concentration Medical Decision Making ED Course and Treatment: 04/09/18 00:26 Impression: 73 year old female presents with right flank pain. Plan: -- CT ABD & Pelvis -- EKG -- Aztreonam -- Blood and Urine cultures -- Reassess and disposition Prior Visits: Notes and results from previous visits were reviewed. Progress Notes: 04/09/18 00:28 Patient's urinalysis culture sensitivities were noted. CT was ordered and is pending. Patient admitted for IV antibiotics. 04/09/18 00:29 Discussed case with medical imaging technologist and with house physician, Dr Kumar, who accepts patient under hospitalist service. 04/09/18 01:49 EKG Reviewed by me, shows: Normal sinus rhythm @ 84 bpm Normal EKG - Lab Interpretations Lab Results: Total Bilirubin 0.4 mg/dL (0.2-1.3) 04/08/18 22:25 AST 27 U/L (14-36) 04/08/18 22:25 ALT 30 U/L (7-56) 04/08/18 22:25 Alkaline Phosphatase 110 U/L (38-126) 04/08/18 22:25 Total Protein 7.9 g/dL (5.8-8.3) 04/08/18 22:25 Albumin 4.6 g/dL (3.0-4.8) 04/08/18 22:25 Globulin 3.3 gm/dL 04/08/18 22:25 Albumin/Globulin Ratio 1.4 (1.1-1.8) 04/08/18 22:25 Lipase 103 U/L (23-300) 04/08/18 22:25 Urine Color Yellow (YELLOW) 04/08/18 22:55 Urine Appearance Slight-cloudy (CLEAR) 04/08/18 22:55 Urine pH 6.0 (4.7-8.0) 04/08/18 22:55 Ur Specific Carbon 1.020 (1.005-1.035) 04/08/18 22:55 Urine Protein Negative mg/dL (<30 mg/dL) 04/08/18 22:55 Urine Glucose (UA) Negative mg/dL (NEGATIVE) 04/08/18 22:55 Urine Ketones Negative mg/dL (NEGATIVE) 04/08/18 22:55 Urine Blood Moderate (NEGATIVE) H 04/08/18 22:55 Urine Nitrate Positive (NEGATIVE) H 04/08/18 22:55 Urine Bilirubin Negative (NEGATIVE) 04/08/18 22:55 Urine Urobilinogen 0.2 E.U./dL (<1 E.U./dL) 04/08/18 22:55 Ur Leukocyte Esterase Negative Fred/uL (NEGATIVE) 04/08/18 22:55 Urine RBC 1 - 3 /hpf (0-2) H 04/08/18 22:55 Urine WBC 0 - 2 /hpf (0-6) 04/08/18 22:55 Ur Epithelial Cells None /hpf (0-5) 04/08/18 22:55 Urine Bacteria Many /hpf (NONE) 04/08/18 22:55 - RAD Interpretation Radiology Orders: 04/08/18 22:16 ABD & PELVIS W/O PO OR IV CONT [CT] Stat - Medication Orders Current Medication Orders: Aztreonam (Azactam 1 Gm) 100 mls @ 100 mls/hr IVPB STAT STA; Protocol Stop: 04/09/18 01:10 Discontinued Medications Sodium Chloride (Sodium Chloride 0.9%) 1,000 mls @ 999 mls/hr IV .Q1H1M STA Stop: 04/08/18 23:17 Last Admin: 04/08/18 23:40 Dose: 999 mls/hr eMAR Start Stop Document 04/08/18 23:40 SS (Rec: 04/08/18 23:40 SS [id number]) Intravenous Solution Start Date 04/08/18 Start Time 23:40 End Date 04/09/18 End time 00:40 Total Infusion Time 60 - Scribe Statement The provider has reviewed the documentation as recorded by the Nataly Molina Provider Scribe Attestation: All medical record entries made by the Scribbraydon were at my direction and personally dictated by me. I have reviewed the chart and agree that the record accurately reflects my personal performance of the history, physical exam, medical decision making, and the department course for this patient. I have also personally directed, reviewed, and agree with the discharge instructions and disposition. Disposition/Present on Arrival - Present on Arrival Any Indicators Present on Arrival: No History of DVT/PE: No History of Uncontrolled Diabetes: No Urinary Catheter: No History of Decub. Ulcer: No History Surgical Site Infection Following: None - Disposition Have Diagnosis and Disposition been Completed?: Yes Diagnosis: UTI (urinary tract infection), Flank pain, Pyelonephritis due to Escherichia coli Disposition: HOSPITALIZED Disposition Time: 00:12 Patient Problems: Current Active Problems Problem Status Onset Flank pain Acute Pyelonephritis due to Escherichia coli Acute UTI (urinary tract infection) Acute Condition: STABLE
--- NOTE | 2018-04-09 00:52 | CT ---
Date of service: 04/08/2018 PROCEDURE: CT Abdomen and Pelvis without intravenous contrast HISTORY: right flank pain COMPARISON: 04/22/2015 TECHNIQUE: CT scan of the abdomen and pelvis was performed without administration of intravenous contrast. Oral contrast was not administered. Coronal and sagittal reformatted images were obtained. Radiation dose: Total exam DLP = 368.71 mGy-cm. This CT exam was performed using one or more of the following dose reduction techniques: Automated exposure control, adjustment of the mA and/or kV according to patient size, and/or use of iterative reconstruction technique. FINDINGS: LOWER THORAX: There is question of 5 mm nodule in the right middle lobe. The visualized lung bases are clear. LIVER: Mild hepatomegaly. No ductal dilatation. There is a 1.5 x 1.4 cm simple cyst in the left hepatic lobe. There is a punctate nonspecific calcification in the right hepatic lobe. GALLBLADDER AND BILE DUCTS: Contracted. PANCREAS: Normal in size. No gross lesion or ductal dilatation. SPLEEN: Normal in size. ADRENALS: No discrete nodule. KIDNEYS AND URETERS: Both kidneys are normal in size. There is a punctate nonobstructing stone in the left interpolar region and 4 mm nonobstructing stone in the left lower pole.. There are parapelvic cyst versus hydronephrosis in the lower poles of the kidneys. VASCULATURE: No aortic aneurysm. There are aortic atherosclerotic calcifications present. BOWEL: The small bowel loops are normal in caliber. There is colonic diverticulosis, extensive in the sigmoid colon without CT evidence for acute diverticulitis. No bowel dilatation or obstruction. APPENDIX: Normal appendix. PERITONEUM: No free fluid. No free air. LYMPH NODES: No enlarged lymph nodes. BLADDER: Well distended and normal in appearance. REPRODUCTIVE: The uterus is surgically absent. BONES: No acute fracture. OTHER FINDINGS: There is a small sliding hiatal hernia. IMPRESSION: 1. No right nephrolithiasis or obstructive uropathy. 2. Parapelvic cyst versus hydronephrosis in lower poles of the kidneys. Please correlate with retroperitoneal ultrasound. 3. Punctate nonobstructing stone in the interpolar region of the left kidney and 4 mm nonobstructing stone in the lower pole of the left kidney. 4. Extensive colonic diverticulosis, worse in the sigmoid colon without CT evidence for acute diverticulitis.
[2018-04-09] MEDS ORDERED: guaiFENesin 100 mg/5 ml Syrup UD PO PRN (01:22)
[2018-04-09] MEDS ORDERED: Albuterol-Ipratrop 3 mg / 0.5 (3 ml) UD IH PRN (01:27)
--- NOTE | 2018-04-09 01:46 | CP.PCM.HP ---
<Melba Gamble - Last Filed: 04/09/18 02:48> History of Present Illness - History of Present Illness History of Present Illness: Melba Gamble, PGY-1, Internal Medicine History and Physical for Dr. Kumar 73 year old female with past medical history of hypertension, hyperlipidemia, gastritis, diverticulitis, asthma or COPD, and arthritis presents with sharp, intermittent right lower quadrant pain that radiates to the right flank that started in 11/2017. Patient said that Dr. Ferguson gave unknown medications that helped resolves symptoms. In addition, hydration would resolve symptoms. No exacerbating symptoms present. Patient went for appointment with Dr. Ferguson on April 02, 2018, who did a urinanalysis at the time and stated that the patient had a UTI. Today, doctor called the patient and told patient to come to the hospital for IV antibiotics for treatment of UTI. Patient also reported headaches, black spots in vision, congestion, shortness of breath, wheezing, cough, dysuria, but no hematuria. Patient denied any other symptoms. 12-point ROS was negative except for what was mentioned above. PMH: as mentioned above PSH: face lift, labrum repair, tubal ligation, liposuction, right knee surgery FMHx: noncontributary Allergies: penicillin: mild rash SHx: stopped smoking 15 years ago. She used to smoke 3 or more cigarettes a day for 50 years. She stopped drinking 15 years ago. She used to drink 4 drinks on the weekend. She denied recreational drug use PMD: Dr. Ferguson Home Rx: losartan, simvastatin, pepcid, vitamin D, vitamin B12, montelukast, symbicort Present on Admission - Present on Admission Any Indicators Present on Admission: Yes Review of Systems - Constitutional Constitutional: Headache. absent: Anorexia, Chills, Fever - EENT Eyes: Floaters (black). absent: Blurred Vision Nose/Mouth/Throat: Nasal Congestion, Sore Throat - Cardiovascular Cardiovascular: absent: Chest Pain, Chest Pain at Rest, Dyspnea - Respiratory Respiratory: Cough (dry), Dyspnea, Wheezing - Gastrointestinal Gastrointestinal: Abdominal Pain (right lower quadrant). absent: Constipation, Diarrhea, Nausea, Vomiting - Genitourinary Genitourinary: Dysuria. absent: Hematuria - Musculoskeletal Musculoskeletal: Back Pain (right flank pain). absent: Arthralgias, Myalgias - Integumentary Integumentary: absent: Acne, Rash - Neurological Neurological: absent: Numbness, Tingling, Tremor, Vertigo Past Patient History - Infectious Disease Hx of Infectious Diseases: None - Tetanus Immunizations Tetanus Immunization: Unknown - Past Medical History & Family History Past Medical History?: Yes - Past Social History Smoking Status: Former Smoker - CARDIAC Hx Hypertension: Yes - PULMONARY Hx Respiratory Disorders: No - NEUROLOGICAL Hx Dizziness: Yes - HEENT Hx HEENT Problems: No - RENAL Hx Chronic Kidney Disease: No - ENDOCRINE/METABOLIC Hx Endocrine Disorders: No - HEMATOLOGICAL/ONCOLOGICAL Hx Blood Disorders: No - INTEGUMENTARY Hx Dermatological Problems: No - MUSCULOSKELETAL/RHEUMATOLOGICAL Hx Arthritis: Yes - GASTROINTESTINAL Hx Diverticulitis: Yes Hx Gastroesophageal Reflux: Yes Other/Comment: abdominal pain - GENITOURINARY/GYNECOLOGICAL Hx Genitourinary Disorders: Yes Hx Urinary Tract Infection: Yes - PSYCHIATRIC Hx Anxiety: Yes Hx Depression: Yes Hx Substance Use: No - SURGICAL HISTORY Other/Comment: 1989' broken nose surgery. 1999' right shoulder surgery. 2001 Tummy tuck - ANESTHESIA Hx Anesthesia: Yes Hx Anesthesia Reactions: No Hx Malignant Hyperthermia: No Meds Allergies/Adverse Reactions: Allergies Allergy/AdvReac Type Severity Reaction Status Date / Time Penicillins Allergy RASH Verified 04/08/18 21:57 Physical Exam - Constitutional Appears: Well, Non-toxic, No Acute Distress - Head Exam Head Exam: ATRAUMATIC, NORMAL INSPECTION, NORMOCEPHALIC - Eye Exam Eye Exam: EOMI, PERRL - Respiratory Exam Respiratory Exam: Wheezes (mild diffuse), NORMAL BREATHING PATTERN - Cardiovascular Exam Cardiovascular Exam: REGULAR RHYTHM, RRR - GI/Abdominal Exam GI & Abdominal Exam: Normal Bowel Sounds, Soft, Tenderness (right lower quadrant) - Extremities Exam Extremities exam: Positive for: full ROM - Back Exam Back exam: CVA tenderness (R) (mild) - Neurological Exam Neurological exam: Alert, CN II-XII Intact, Oriented x3 - Skin Skin Exam: Dry, Intact, Normal Color Results - Vital Signs Recent Vital Signs: Last Vital Signs Temp 98.7 F 04/08/18 21:49 Pulse 97 H 04/08/18 21:49 Resp 19 04/08/18 21:49 BP 160/99 H 04/08/18 21:49 Pulse Ox 95 04/08/18 21:49 - Labs Result Diagrams: 04/08/18 22:25 04/08/18 22:25 Labs: Laboratory Results - last 24 hr 04/08/18 04/08/18 04/08/18 22:25 22:25 22:55 WBC 5.2 RBC 3.84 Hgb 11.7 L Hct 36.3 MCV 94.5 MCH 30.5 MCHC 32.2 RDW 13.6 Plt Count 221 MPV 11.1 H Sodium 139 Potassium 4.2 Chloride 105 Carbon Dioxide 23 Anion Gap 15 BUN 18 Creatinine 0.7 Est GFR ( Amer) > 60 Est GFR (Non-Af Amer) > 60 Random Glucose 180 H Calcium 9.2 Total Bilirubin 0.4 AST 27 ALT 30 Alkaline Phosphatase 110 Total Protein 7.9 Albumin 4.6 Globulin 3.3 Albumin/Globulin Ratio 1.4 Lipase 103 Urine Color Yellow Urine Appearance Slight-cloudy Urine pH 6.0 Ur Specific [place] 1.020 Urine Protein Negative Urine Glucose (UA) Negative Urine Ketones Negative Urine Blood Moderate H Urine Nitrate Positive H Urine Bilirubin Negative Urine Urobilinogen 0.2 Ur Leukocyte Esterase Negative Urine RBC 1 - 3 H Urine WBC 0 - 2 Ur Epithelial Cells None Urine Bacteria Many Assessment & Plan - Assessment and Plan (Free Text) Assessment: 73 year old female with past medical history of hypertension, hyperlipidemia, gastritis, diverticulitis, asthma or COPD, and arthritis presents with sharp, intermittent right lower quadrant pain that radiates to the right flank that started in 11/2017. Plan: UTI -Likely antibiotic resistent UTI -UA: moderate blood, positive nitrite, negative leukocyte esterase, 1-3 RBC, 0-2 WBC, many bacteria -Patient currently does not fulfill SIRS criteria. Low probability of sepsis -Blood culture and urine culture ordered to look for UTI organism and to rule out sepsis. -Procalcitonin and lactic acid ordered -Aztreonam started for patient due to antibiotic resistent UTI -Follow up abdominal CT results for ruling out pyelonephritis. History of hypertension -BP: 160/97 -Continue with home losartan Seasonal allergies -Continue with home levoceterizine Common cold -Continue with acetaminophen and guaifenesin COPD vs. Asthma -Brovana and pulmicort started in place of home symbicort -Continue home singulair -Duonebs PRN for shortness of breath -Outpatient PFTs likely needed Hyperlipidemia -Currently not taking any medications -Lipid panel ordered GI prophylaxis: protonix 40 mg daily DVT prophylaxis: lovenox 40 mg daily Patient plan discussed with Dr. Kumar. - Date & Time Date: 04/09/18 Time: 01:52 <Sarah Kumar - Last Filed: 04/09/18 05:59> Results - Vital Signs Recent Vital Signs: Last Vital Signs Temp 98.7 F 04/08/18 21:49 Pulse 86 04/09/18 03:31 Resp 20 04/09/18 03:31 BP 160/99 H 04/08/18 21:49 Pulse Ox 99 04/09/18 02:32 - Labs Result Diagrams: 04/08/18 22:25 04/08/18 22:25 Labs: Laboratory Results - last 24 hr 04/08/18 04/08/18 04/08/18 22:25 22:25 22:55 WBC 5.2 RBC 3.84 Hgb 11.7 L Hct 36.3 MCV 94.5 MCH 30.5 MCHC 32.2 RDW 13.6 Plt Count 221 MPV 11.1 H Sodium 139 Potassium 4.2 Chloride 105 Carbon Dioxide 23 Anion Gap 15 BUN 18 Creatinine 0.7 Est GFR ( Amer) > 60 Est GFR (Non-Af Amer) > 60 Random Glucose 180 H Lactic Acid Calcium 9.2 Total Bilirubin 0.4 AST 27 ALT 30 Alkaline Phosphatase 110 Total Protein 7.9 Albumin 4.6 Globulin 3.3 Albumin/Globulin Ratio 1.4 Lipase 103 Urine Color Yellow Urine Appearance Slight-cloudy Urine pH 6.0 Ur Specific [place] 1.020 Urine Protein Negative Urine Glucose (UA) Negative Urine Ketones Negative Urine Blood Moderate H Urine Nitrate Positive H Urine Bilirubin Negative Urine Urobilinogen 0.2 Ur Leukocyte Esterase Negative Urine RBC 1 - 3 H Urine WBC 0 - 2 Ur Epithelial Cells None Urine Bacteria Many 04/09/18 02:25 WBC RBC Hgb Hct MCV MCH MCHC RDW Plt Count MPV Sodium Potassium Chloride Carbon Dioxide Anion Gap BUN Creatinine Est GFR ( Amer) Est GFR (Non-Af Amer) Random Glucose Lactic Acid 0.9 Calcium Total Bilirubin AST ALT Alkaline Phosphatase Total Protein Albumin Globulin Albumin/Globulin Ratio Lipase Urine Color Urine Appearance Urine pH Ur Specific [place] Urine Protein Urine Glucose (UA) Urine Ketones Urine Blood Urine Nitrate Urine Bilirubin Urine Urobilinogen Ur Leukocyte Esterase Urine RBC Urine WBC Ur Epithelial Cells Urine Bacteria Attending/Attestation - Attestation I have personally seen and examined this patient.: Yes I have fully participated in the care of the patient.: Yes I have reviewed all pertinent clinical information: Yes Notes (Text): 04/09/18 05:53 Note: according to ER MD Dr Ferguson sent pt with a note stating she had Urine Culture + for E Coli and needs iv antibiotics. Pt seen with the resident by the bedside Case discussed in detail Agree with documentation,assessment and plan of treatment. 04/09/18 05:55
[2018-04-09] MEDS ORDERED: Aztreonam 1 Gm in NS 100mL 100 ML IVPB SCH (06:00)
[2018-04-09 07:05] LABS: HDL CHOLESTEROL 51 mg/dL (29-60)
[2018-04-09 07:15] LABS: LDL CHOLESTEROL 80 mg/dL (0-129)
[2018-04-09] MEDS: Arformoterol 15 mcg/2 ml Inh Sol IH SCH ×2 (07:31→20:12)
[2018-04-09] MEDS: Budesonide 0.25 mg/2 ml Inhal Susp UD IH SCH ×2 (07:31→20:12)
[2018-04-09 07:33] LABS: GRAN # 4.64 (1.4-6.5); GRAN % 80.9 % (50.0-68.0); HEMOGLOBIN 10.1 g/dL (12.0-16.0); LYMPH # 0.7 (1.2-3.4); MEAN CELL VOLUME 94.3 fl (80.0-105.0); MEAN CORPUSCULAR HEMOGLOBIN 30.2 pg (25.0-35.0); MEAN CORPUSCULAR HGB CONC 32.1 g/dl (31.0-37.0); MONO # 0.4 (0.1-0.6); MONO % 7.1 % (1.0-6.0); RBC 3.34 10^6/uL (3.5-6.1); RED CELL DISTRIBUTION WIDTH 13.7 % (11.5-14.5); WHITE BLOOD COUNT 5.7 10^3/uL (4.5-11.0)
[2018-04-09 07:44] LABS: ALB/GLOB RATIO 1.3 (1.1-1.8); ALBUMIN 3.7 g/dL (3.0-4.8); ALT/SGPT 28 U/L (7-56); AST/SGOT 25 U/L (14-36); BLOOD UREA NITROGEN 17 mg/dL (7-21); CALCIUM 8.6 mg/dL (8.4-10.5); GFR NON-AFRICAN AMERICAN > 60
[2018-04-09] MEDS: Enoxaparin 40 mg Syringe SC SCH ×2 (10:02→14:56)
[2018-04-09] MEDS: Meropenem IV 1 gm in NS 1 GM/50 ML BAG IVPB SCH ×3 (10:03→21:26)
[2018-04-09] MEDS ORDERED: LEFLUNOMIDE 20 MG TABLET PO SCH (16:15)
[2018-04-09] MEDS: LEFLUNOMIDE 20 MG PO SCH (17:24)
--- NOTE | 2018-04-09 18:54 | CON ---
DATE: 04/09/2018 The patient is in bed. CHIEF COMPLAINT: Right flank pain times several days. HISTORY OF PRESENT ILLNESS: This is a 73-year-old female with history of hypertension, diverticulitis, chronic obstructive lung disease, hyperlipidemia and asthma, who is admitted with right flank pain and associated with dysuria or frequency and the patient was treated by Dr. Ferguson with an antibiotic for an E. Coli urinary tract infection. She does not know which antibiotic, and the patient has had E. Coli urinary tract infection in 2015, which was sensitive to ampicillin at that time in January and also in May 2015, she also had E. Coli urinary tract infection. Review of systems reveals no nausea, no vomiting or chest pain. No headaches or blurred vision. REVIEW OF SYSTEMS: Twelve-point review systems performed. PAST MEDICAL HISTORY: Significant for hypertension, diverticulitis, chronic obstructive lung disease, hyperlipidemia and asthma. PAST SURGICAL HISTORY: Significant for tubal ligation, right knee surgery, face lift, and liposuction. ALLERGIES: THE PATIENT IS ALLERGIC TO PENICILLIN. SHE STATES SHE DEVELOPED SOME MILD RASH. MEDICATIONS: Medications at home include the patient to be on Zocor, losartan, and famotidine. PHYSICAL EXAMINATION: GENERAL: The patient is in bed, in no acute distress, answering questions appropriately. VITAL SIGNS: Temperature of 98, heart rate of 97, respiratory rate of 20, and blood pressure 160/90. HEENT: Examination of HEENT is unremarkable. NECK: Supple. LUNGS: Have decreased breath sounds. HEART: Normal S1, S2. ABDOMEN: Soft, nontender. There is right-sided CVA tenderness. LABORATORY DATA: Laboratory examination reveals a white count of 5.2, hemoglobin of 11. Elevated blood sugar and urinalysis is noted to have zero to two wbc's, cloudy, positive and moderate blood and positive nitrites with negative leukocyte esterase, many bacteria. ASSESSMENT AND PLAN: This is a 73-year-old female with, 1. Right pyelonephritis, which was partially treated with outpatient antibiotic for Escherichia colitis urinary tract infection. THE PATIENT WAS ALLERGIC TO PENICILLIN. We will start the patient on meropenem, pending urine culture, blood cultures. We will order hemoglobin A1c, and we will make further recommendations. Giovanny Boghossian, MD
--- NOTE | 2018-04-09 19:00 | CARD ---
APPROVED REPORT Date of service: 04/09/2018 EKG Measurement Heart [id number] <Conclusion> Normal sinus rhythm Normal ECG
[2018-04-10] MEDS: Meropenem IV 1 gm in NS 1 GM/50 ML BAG IVPB SCH ×3 (06:02→21:55)
[2018-04-10 07:22] LABS: BASO # 0.02 K/mm3 (0.0-2.0); BASO % 0.4 % (0.0-3.0); EOS # 0.1 (0.0-0.7); EOS % 1.1 % (1.5-5.0); GRAN # 2.92 (1.4-6.5); GRAN % 51.6 % (50.0-68.0); HEMOGLOBIN 10.3 g/dL (12.0-16.0); LYMPH # 2.3 (1.2-3.4); MEAN CELL VOLUME 95.6 fl (80.0-105.0); MEAN CORPUSCULAR HEMOGLOBIN 30.2 pg (25.0-35.0); MEAN CORPUSCULAR HGB CONC 31.6 g/dl (31.0-37.0); MEAN PLATELET VOLUME 10.7 fl (7.0-11.0); MONO # 0.3 (0.1-0.6); MONO % 5.9 % (1.0-6.0); RBC 3.41 10^6/uL (3.5-6.1); RED CELL DISTRIBUTION WIDTH 14.1 % (11.5-14.5); WHITE BLOOD COUNT 5.6 10^3/uL (4.5-11.0)
[2018-04-10] MEDS: Budesonide 0.25 mg/2 ml Inhal Susp UD IH SCH ×2 (07:41→21:10)
[2018-04-10] MEDS: Arformoterol 15 mcg/2 ml Inh Sol IH SCH ×2 (07:41→21:10)
[2018-04-10 07:51] LABS: ALB/GLOB RATIO 1.3 (1.1-1.8); ALBUMIN 3.5 g/dL (3.0-4.8); ALT/SGPT 27 U/L (7-56); AST/SGOT 26 U/L (14-36); BLOOD UREA NITROGEN 14 mg/dL (7-21); CALCIUM 8.5 mg/dL (8.4-10.5); GFR NON-AFRICAN AMERICAN > 60
[2018-04-10] MEDS: Fluticasone Nasal 50 mcg/Spray NS SCH (10:21)
[2018-04-10] MEDS: Enoxaparin 40 mg Syringe SC SCH ×2 (10:22→13:16)
[2018-04-10] MEDS: LEFLUNOMIDE 20 MG PO SCH (10:22)
--- NOTE | 2018-04-10 14:24 | US ---
Date of service: 04/10/2018 PROCEDURE: Ultrasound of the Kidneys HISTORY: r/o hydronephrosis COMPARISON: None available. TECHNIQUE: Sonogram of the kidneys. FINDINGS: RIGHT KIDNEY: Measures: 8.8 x 3.8 x 6.1 cm. Normal in size and contour. A simple cyst identified in the cortex of the upper pole right kidney measure 1.6 x 1.8 x 1.6 cm. No stone, solid mass lesion or hydronephrosis visualized. LEFT KIDNEY: Measures: 110.0 x 5.4 x 6.4 cm. Normal in size, contour and echogenicity. No stone, solid mass lesion or hydronephrosis visualized. OTHER FINDINGS: None. IMPRESSION: Simple cyst upper pole right kidney 1.8 cm. Remainder of the examination appears unremarkable bilaterally.
--- NOTE | 2018-04-10 14:37 | CP.PCM.PN ---
<Xander Navas - Last Filed: 04/10/18 14:40> Subjective - Date & Time of Evaluation Date of Evaluation: 04/10/18 Time of Evaluation: 07:15 - Subjective Subjective: Medicine Progress Note for Hospitalist Service, Dr. Arlene Navas, DO PGY-1 Pt seen and examined at bedside this am. States she is feeling better but still having "discomfort" when she urinates. Also reports R-sided flank pain that worsens when she sits up in bed. No acute events reported overnight by staff. Denies headache, dizziness, fever, chills, chest pain, sob, n/v/d/c, abd pain, urinary complaints, or other symptoms. Objective - Vital Signs/Intake and Output Vital Signs (last 24 hours): Temp Pulse Resp BP Pulse Ox 98.1 F 94 H 20 149/88 98 04/10/18 06:00 04/10/18 10:22 04/10/18 06:00 04/10/18 10:22 04/10/18 06:00 Intake and Output: 04/10/18 04/10/18 06:59 18:59 Intake Total 150 Balance 150 - Medications Medications: Current Medications Acetaminophen (Tylenol 325mg Tab) 650 mg PO Q6H PRN PRN Reason: Fever >100.4 F Acetaminophen (Tylenol 325mg Tab) 650 mg PO Q6H PRN PRN Reason: Pain, moderate (4-7) Albuterol/Ipratropium (Duoneb 3 Mg/0.5 Mg (3 Ml) Ud) 3 ml IH Q2H PRN PRN Reason: Shortness of Breath Arformoterol Tartrate (Brovana) 15 mcg IH [id number] [facility] Last Admin: 04/10/18 07:41 Dose: 15 mcg Atorvastatin Calcium (Lipitor) 10 mg PO DIN [facility] Last Admin: 04/09/18 17:23 Dose: 10 mg Budesonide (Pulmicort Respules) 0.25 mg IH [id number] [facility] Last Admin: 04/10/18 07:41 Dose: 0.25 mg Enoxaparin Sodium (Lovenox) 40 mg SC DAILY [facility]; Protocol Last Admin: 04/10/18 13:16 Dose: Not Given Famotidine (Pepcid) 20 mg PO 1000,2200 [facility] Last Admin: 04/10/18 10:21 Dose: 20 mg Fluticasone Propionate (Flonase) 1 actuation NS DAILY [facility] Last Admin: 04/10/18 10:21 Dose: 1 spr Guaifenesin (Robitussin) 100 mg PO Q8 PRN PRN Reason: Cough Home Med (Home Med) 1 unit PO DAILY [facility] Last Admin: 04/10/18 10:22 Dose: 1 unit Meropenem (Merrem Iv 1 Gm Premix) 1 gm in 50 mls @ 100 mls/hr IVPB Q8 [facility]; Protocol Stop: 04/18/18 09:43 Last Admin: 04/10/18 13:05 Dose: 100 mls/hr Loratadine (Claritin) 10 mg PO DAILY [facility] Last Admin: 04/10/18 10:21 Dose: 10 mg Losartan Potassium (Cozaar) 25 mg PO DAILY [facility] Last Admin: 04/10/18 10:22 Dose: 25 mg Montelukast Sodium (Singulair) 10 mg PO DAILY [facility] Last Admin: 04/10/18 10:21 Dose: 10 mg - Labs Labs: 04/10/18 06:45 04/10/18 06:45 - Constitutional Appears: Non-toxic, No Acute Distress - Head Exam Head Exam: ATRAUMATIC, NORMOCEPHALIC - Eye Exam Eye Exam: EOMI, Normal appearance, PERRL - ENT Exam ENT Exam: Mucous Membranes Moist - Respiratory Exam Respiratory Exam: Clear to Ausculation Bilateral, NORMAL BREATHING PATTERN. absent: Rales, Rhonchi, Wheezes - Cardiovascular Exam Cardiovascular Exam: REGULAR RHYTHM, +S1, +S2. absent: Gallop, Rubs, Murmur - GI/Abdominal Exam GI & Abdominal Exam: Soft, Normal Bowel Sounds. absent: Distended, Guarding, Tenderness, Organomegaly - Extremities Exam Extremities Exam: Full ROM, Normal Capillary Refill, Normal Inspection. absent: Calf Tenderness, Pedal Edema - Back Exam Back Exam: CVA tenderness (R), Full ROM, NORMAL INSPECTION. absent: CVA tenderness (L) - Neurological Exam Neurological Exam: Alert, Awake, CN II-XII Intact, Normal Gait, Oriented x3 - Psychiatric Exam Psychiatric exam: Normal Affect, Normal Mood - Skin Skin Exam: Dry, Intact, Normal Color, Warm Assessment and Plan - Assessment and Plan (Free Text) Assessment: 73 year old female with past medical history of hypertension, hyperlipidemia, gastritis, diverticulitis, asthma or COPD, and arthritis who presented to the ED with sharp, intermittent right lower quadrant pain that radiates to the right flank that started in 11/2017. Admitted for recurrent UTI and failure of outpatient antibiotic therapy. Plan: UTI -Likely antibiotic resistant UTI, failure of outpatient antibiotic therapy -UA: moderate blood, positive nitrite, negative leukocyte esterase, 1-3 RBC, 0-2 WBC, many bacteria -Urine cx pos for gram neg griselda, f/u final sensitivities -Blood cx x 2 neg x 24 hrs -Procalcitonin and lactic acid wnl -C/w Meropenem 1 g q8h as per ID recs -Abd CT: No R nephrolithiasis or obstructive uropathy. Parapelvic cyst versus hydronephrosis in lower poles of kidneys. Please correlate with retroperitoneal U/s. Punctate non-obstructing stone in interpolar region of the L kidney, and 4 mm non-obstructing stone in lower pole of L kidney. Extensive colonic diverticulosis, worse in the sigmoid colon w/o CT evidence for acute diverticulitis. -Renal U/s: simple cyst upper pole R kidney 1/8 cm. Remainder of exam appears unremarkable b/l. -Urology consult for Dr. Torres requested as per PMD Dr. Ferguson, recs appreciated -ID consulted (Dr. Barraza), recs appreciated Hx hypertension -BP 125/80, cont to trend -Continue with home losartan Seasonal allergies -Continue with Claritin daily Common cold -Continue with acetaminophen and guaifenesin COPD vs. Asthma -Brovana and pulmicort started in place of home symbicort -Continue home singulair -Duonebs PRN for shortness of breath -Outpatient PFTs likely needed Hyperlipidemia -Currently not taking any medications -Lipid panel wnl GI prophylaxis: Protonix 40 mg daily DVT prophylaxis: Lovenox 40 mg daily Pt seen, examined with, and plan discussed with Dr. Jacobs, attending physician. Xander Navas DO PGY-1, Customer Services Supervisor Pager #[phone] <Magdy Jacobs - Last Filed: 04/11/18 17:30> Objective - Vital Signs/Intake and Output Vital Signs (last 24 hours): Temp Pulse Resp BP Pulse Ox 97.9 F 84 20 122/79 96 04/11/18 06:00 04/11/18 11:04 04/11/18 06:00 04/11/18 11:04 04/11/18 06:00 Intake and Output: 04/11/18 04/11/18 06:59 18:59 Intake Total 540 Balance 540 - Medications Medications: Current Medications Acetaminophen (Tylenol 325mg Tab) 650 mg PO Q6H PRN PRN Reason: Fever >100.4 F Acetaminophen (Tylenol 325mg Tab) 650 mg PO Q6H PRN PRN Reason: Pain, moderate (4-7) Albuterol/Ipratropium (Duoneb 3 Mg/0.5 Mg (3 Ml) Ud) 3 ml IH Q2H PRN PRN Reason: Shortness of Breath Arformoterol Tartrate (Brovana) 15 mcg IH [id number] [facility] Last Admin: 04/11/18 07:20 Dose: 15 mcg Atorvastatin Calcium (Lipitor) 10 mg PO DIN [facility] Last Admin: 04/10/18 16:38 Dose: 10 mg Budesonide (Pulmicort Respules) 0.25 mg IH [id number] [facility] Last Admin: 04/11/18 07:20 Dose: 0.25 mg Enoxaparin Sodium (Lovenox) 40 mg SC DAILY [facility]; Protocol Last Admin: 04/11/18 11:04 Dose: Not Given Famotidine (Pepcid) 20 mg PO 1000,2200 [facility] Last Admin: 04/11/18 11:03 Dose: 20 mg Fluticasone Propionate (Flonase) 1 actuation NS DAILY [facility] Last Admin: 04/11/18 11:03 Dose: 1 spr Guaifenesin (Robitussin) 100 mg PO Q8 PRN PRN Reason: Cough Home Med (Home Med) 1 unit PO DAILY [facility] Last Admin: 04/11/18 11:03 Dose: 1 unit Meropenem (Merrem Iv 1 Gm Premix) 1 gm in 50 mls @ 100 mls/hr IVPB Q8 [facility]; Protocol Stop: 04/18/18 09:43 Last Admin: 04/11/18 13:07 Dose: 100 mls/hr Loratadine (Claritin) 10 mg PO DAILY [facility] Last Admin: 04/11/18 11:04 Dose: Not Given Losartan Potassium (Cozaar) 25 mg PO DAILY [facility] Last Admin: 04/11/18 11:04 Dose: 25 mg Montelukast Sodium (Singulair) 10 mg PO DAILY [facility] Last Admin: 04/11/18 11:03 Dose: 10 mg - Labs Labs: 04/11/18 06:30 04/11/18 06:30 Attending/Attestation - Attestation I have personally seen and examined this patient.: Yes I have fully participated in the care of the patient.: Yes I have reviewed all pertinent clinical information, including history, physical exam and plan: Yes Notes (Text): 04/11/18 17:26 Attending note; Patient seen and examined with resident. Patient is alert and awake. Still complaining of flank pain. Complaining of burning urination. Denies any hematuria. Tolerating diet. Patient is a 73 year old female with past medical history of hypertension, hyperlipidemia, gastritis, diverticulitis, asthma or COPD, and arthritis is admitted for urinary symptoms and flank pain. 1. Recurrent UTI; patient was treated with by mouth nitrofurantoin as outpatient. Failed outpatient by mouth antibiotics therapy. Urine culture is growing gram-negative rods. Patient is allergic to penicillin. Previous urine cultures are not sensitive to ciprofloxacin or levofloxacin. Started on IV meropenem. ID evaluation appreciated. 2. Clinical pyelonephritis; patient has right flank pain. CT abdomen and pelvis showed Punctate non-obstructing stone in interpolar region of the L kidney, and 4 mm non-obstructing stone in lower pole of L kidney. Extensive colonic diverticulosis, worse in the sigmoid colon w/o CT evidence for acute diverticulitis. Renal ultrasound ordered. Case discussed with urology in detail. 3. Hypertension; continue Cozaar. Pending culture and sensitivity. Upon discharge the patient will follow-up with PMD Dr. Ferguson. The diagnosis, treatment option explained to the patient in detail.
--- NOTE | 2018-04-10 17:06 | PN ---
DATE: 04/10/2018 SUBJECTIVE: The patient is in bed in no acute distress. Seen earlier this morning. No fevers and chills. PHYSICAL EXAMINATION: VITAL SIGNS: Temperature is 98, heart rate of 94, respiratory rate of 20, blood pressure is 140/80. HEENT: Unremarkable. NECK: Supple. LUNGS: Have decreased breath sounds. HEART: Normal S1, S2. ABDOMEN: Soft. LABORATORY DATA: Laboratory examination reveals a white count of 5.6. Chemistries are noted. Urinalysis is 0 to 2 WBCs and HIV is negative. Microbiology reveals a gram-negative griselda in the urine. The patient had a CAT scan of the abdomen and pelvis which was reported to be unremarkable for any acute pathology. ASSESSMENT AND PLAN: A 73-year-old female seen earlier today in 563, bed two, with past medical history significant for hypertension, diverticulitis, chronic obstructive lung disease, hyperlipidemia, asthma, who is admitted now with right pyelonephritis, although the urinalysis is not significant. The patient was being treated with antibiotic as an outpatient for E. Coli urinary tract infection. At this point, the patient did have right CVA tenderness, diagnosed to have right pyelonephritis. We will check on the identification sensitivity, gram-negative griselda. Currently on meropenem day #2. We will make further recommendations. The patient is scheduled for renal ultrasound. Giovanny Barraza MD
[2018-04-10 22:33] VITALS: TEMP 97.9; O2SAT 96
[2018-04-11] MEDS: Meropenem IV 1 gm in NS 1 GM/50 ML BAG IVPB SCH ×2 (05:49→13:07)
[2018-04-11 07:10] LABS: BASO # 0.02 K/mm3 (0.0-2.0); BASO % 0.4 % (0.0-3.0); EOS # 0.2 (0.0-0.7); EOS % 3.1 % (1.5-5.0); GRAN # 2.82 (1.4-6.5); HEMOGLOBIN 11.2 g/dL (12.0-16.0); LYMPH # 1.8 (1.2-3.4); LYMPH % 34.5 % (22.0-35.0); MEAN CELL VOLUME 95.2 fl (80.0-105.0); MEAN CORPUSCULAR HEMOGLOBIN 29.9 pg (25.0-35.0); MEAN CORPUSCULAR HGB CONC 31.4 g/dl (31.0-37.0); MEAN PLATELET VOLUME 10.6 fl (7.0-11.0); MONO # 0.4 (0.1-0.6); RBC 3.75 10^6/uL (3.5-6.1); RED CELL DISTRIBUTION WIDTH 13.7 % (11.5-14.5); WHITE BLOOD COUNT 5.1 10^3/uL (4.5-11.0)
[2018-04-11] MEDS: Arformoterol 15 mcg/2 ml Inh Sol IH SCH ×2 (07:20→19:56)
[2018-04-11] MEDS: Budesonide 0.25 mg/2 ml Inhal Susp UD IH SCH ×2 (07:20→19:56)
[2018-04-11 07:37] LABS: ALB/GLOB RATIO 1.3 (1.1-1.8); ALBUMIN 3.6 g/dL (3.0-4.8); ALT/SGPT 28 U/L (7-56); AST/SGOT 28 U/L (14-36); BLOOD UREA NITROGEN 14 mg/dL (7-21); CALCIUM 8.7 mg/dL (8.4-10.5); GFR NON-AFRICAN AMERICAN > 60
[2018-04-11 08:05] VITALS: BP 122/79; PULSE 84; RESP 20
[2018-04-11] MEDS: Fluticasone Nasal 50 mcg/Spray NS SCH (11:03)
[2018-04-11] MEDS: LEFLUNOMIDE 20 MG PO SCH (11:03)
[2018-04-11] MEDS: Enoxaparin 40 mg Syringe SC SCH (11:04)
--- NOTE | 2018-04-11 13:34 | CP.PCM.PN ---
Subjective - Date & Time of Evaluation Date of Evaluation: 04/11/18 Time of Evaluation: 10:50 - Subjective Subjective: Still having right sided flank pain but a little better, no nausea, no fevers this morning, no diarrhea. Objective - Vital Signs/Intake and Output Vital Signs (last 24 hours): Temp Pulse Resp BP Pulse Ox 97.9 F 72 19 109/61 96 04/10/18 22:32 04/10/18 22:32 04/10/18 22:32 04/10/18 22:32 04/10/18 22:32 Intake and Output: 04/10/18 04/11/18 18:59 06:59 Intake Total 540 Balance 540 - Medications Medications: Current Medications Acetaminophen (Tylenol 325mg Tab) 650 mg PO Q6H PRN PRN Reason: Fever >100.4 F Acetaminophen (Tylenol 325mg Tab) 650 mg PO Q6H PRN PRN Reason: Pain, moderate (4-7) Albuterol/Ipratropium (Duoneb 3 Mg/0.5 Mg (3 Ml) Ud) 3 ml IH Q2H PRN PRN Reason: Shortness of Breath Arformoterol Tartrate (Brovana) 15 mcg IH [id number] [facility] Last Admin: 04/10/18 07:41 Dose: 15 mcg Atorvastatin Calcium (Lipitor) 10 mg PO DIN [facility] Last Admin: 04/10/18 16:38 Dose: 10 mg Budesonide (Pulmicort Respules) 0.25 mg IH [id number] [facility] Last Admin: 04/10/18 07:41 Dose: 0.25 mg Enoxaparin Sodium (Lovenox) 40 mg SC DAILY [facility]; Protocol Last Admin: 04/10/18 13:16 Dose: Not Given Famotidine (Pepcid) 20 mg PO 1000,2200 [facility] Last Admin: 04/10/18 21:55 Dose: 20 mg Fluticasone Propionate (Flonase) 1 actuation NS DAILY [facility] Last Admin: 04/10/18 10:21 Dose: 1 spr Guaifenesin (Robitussin) 100 mg PO Q8 PRN PRN Reason: Cough Home Med (Home Med) 1 unit PO DAILY [facility] Last Admin: 04/10/18 10:22 Dose: 1 unit Meropenem (Merrem Iv 1 Gm Premix) 1 gm in 50 mls @ 100 mls/hr IVPB Q8 [facility]; Protocol Stop: 04/18/18 09:43 Last Admin: 04/11/18 05:49 Dose: 100 mls/hr Loratadine (Claritin) 10 mg PO DAILY [facility] Last Admin: 04/10/18 10:21 Dose: 10 mg Losartan Potassium (Cozaar) 25 mg PO DAILY [facility] Last Admin: 04/10/18 10:22 Dose: 25 mg Montelukast Sodium (Singulair) 10 mg PO DAILY [facility] Last Admin: 04/10/18 10:21 Dose: 10 mg - Labs Labs: 04/10/18 06:45 04/10/18 06:45 - Constitutional Appears: Chronically Ill - Head Exam Head Exam: NORMAL INSPECTION - ENT Exam ENT Exam: Mucous Membranes Moist - Neck Exam Neck Exam: absent: Meningismus - Respiratory Exam Respiratory Exam: Decreased Breath Sounds - Cardiovascular Exam Cardiovascular Exam: +S1, +S2 - GI/Abdominal Exam GI & Abdominal Exam: Soft. absent: Tenderness - Back Exam Back Exam: CVA tenderness (R) Assessment and Plan - Assessment and Plan (Free Text) Plan: Assessment right sided pyelonephritis (clinical) with E. coli in the urine HTN history of diverticulitis COPD dyslipidemia Plan continue Merrem day 3 since the E. coli is resistant to Cipro and Bactrim and patient has allergy to PCN but tolerating Merrem; will need total 10-14 days of antibiotics discussed with Dr. Jacobs
--- NOTE | 2018-04-11 16:36 | CP.PCM.DIS ---
<Idris Gonzalez - Last Filed: 04/11/18 16:36> Provider - Provider Date of Admission: 04/09/18 00:12 Attending physician: Magdy Jacobs MD Primary care physician: Sid Ferguson MD Consults: 04/09/18 06:12 Consult [Physician Consult] Routine Comment: Consulting Provider: Aryan Poon Consulting Physician: Aryan Poon Reason for Consult: antibiotic resistant uti 04/10/18 12:33 Consult [Physician Consult] Routine Comment: Consulting Provider: John Torres Consulting Physician: John Torres Reason for Consult: Dr Ferguson, PMD specifically requested eval for UTI/ nonobs stone Time Spent in preparation of Discharge (in minutes): 35 Diagnosis - Discharge Diagnosis (1) Pyelonephritis due to Escherichia coli Status: Acute Priority: High (2) UTI (urinary tract infection) Status: Acute Priority: High (3) Flank pain Status: Acute Priority: High (4) Abdominal pain Status: Acute Priority: High Hospital Course - Lab Results Lab Results: Micro Results 04/08/18 22:55 Urine Random Urine Culture - Final Escherichia Coli 04/08/18 22:36 Blood Blood Culture - Preliminary NO GROWTH AFTER 48 HOURS 04/08/18 22:06 Blood Blood Culture - Preliminary NO GROWTH AFTER 48 HOURS Most Recent Lab Values WBC 5.1 10^3/uL (4.5-11.0) 04/11/18 06:30 RBC 3.75 10^6/uL (3.5-6.1) 04/11/18 06:30 Hgb 11.2 g/dL (12.0-16.0) L 04/11/18 06:30 Hct 35.7 % (36.0-48.0) L 04/11/18 06:30 MCV 95.2 fl (80.0-105.0) 04/11/18 06:30 MCH 29.9 pg (25.0-35.0) 04/11/18 06:30 MCHC 31.4 g/dl (31.0-37.0) 04/11/18 06:30 RDW 13.7 % (11.5-14.5) 04/11/18 06:30 Plt Count 207 10^3/uL (120.0-450.0) 04/11/18 06:30 MPV 10.6 fl (7.0-11.0) 04/11/18 06:30 Gran % 55.0 % (50.0-68.0) 04/11/18 06:30 Lymph % (Auto) 34.5 % (22.0-35.0) 04/11/18 06:30 Bowie % (Auto) 7.0 % (1.0-6.0) H 04/11/18 06:30 Eos % (Auto) 3.1 % (1.5-5.0) 04/11/18 06:30 Baso % (Auto) 0.4 % (0.0-3.0) 04/11/18 06:30 Gran # 2.82 (1.4-6.5) 04/11/18 06:30 Lymph # (Auto) 1.8 (1.2-3.4) 04/11/18 06:30 Bowie # (Auto) 0.4 (0.1-0.6) 04/11/18 06:30 Eos # (Auto) 0.2 (0.0-0.7) 04/11/18 06:30 Baso # (Auto) 0.02 K/mm3 (0.0-2.0) 04/11/18 06:30 Sodium 141 mmol/L (132-148) 04/11/18 06:30 Potassium 4.1 mmol/L (3.6-5.0) 04/11/18 06:30 Chloride 106 mmol/L (98-107) 04/11/18 06:30 Carbon Dioxide 31 mmol/L (21-33) 04/11/18 06:30 Anion Gap 8 (10-20) L 04/11/18 06:30 BUN 14 mg/dL (7-21) 04/11/18 06:30 Creatinine 0.8 mg/dl (0.7-1.2) 04/11/18 06:30 Est GFR ( Amer) > 60 04/11/18 06:30 Est GFR (Non-Af Amer) > 60 04/11/18 06:30 POC Glucose (mg/dL) 111 mg/dL (65-110) H 04/10/18 10:31 Random Glucose 95 mg/dL (70-110) 04/11/18 06:30 Hemoglobin A1c 5.4 % (4.2-6.5) 04/09/18 07:00 Lactic Acid 0.9 mmol/L (0.7-2.1) 04/09/18 02:25 Calcium 8.7 mg/dL (8.4-10.5) 04/11/18 06:30 Phosphorus 2.6 mg/dL (2.5-4.5) 04/09/18 05:12 Magnesium 2.3 mg/dL (1.7-2.2) H 04/09/18 05:12 Total Bilirubin 0.3 mg/dL (0.2-1.3) 04/11/18 06:30 AST 28 U/L (14-36) 04/11/18 06:30 ALT 28 U/L (7-56) 04/11/18 06:30 Alkaline Phosphatase 80 U/L (38-126) 04/11/18 06:30 Total Protein 6.5 g/dL (5.8-8.3) 04/11/18 06:30 Albumin 3.6 g/dL (3.0-4.8) 04/11/18 06:30 Globulin 2.8 gm/dL 04/11/18 06:30 Albumin/Globulin Ratio 1.3 (1.1-1.8) 04/11/18 06:30 Triglycerides 56 mg/dL (35-160) 04/09/18 06:10 Cholesterol 151 mg/dL (130-200) 04/09/18 06:10 LDL Cholesterol Direct 80 mg/dL (0-129) 04/09/18 06:10 HDL Cholesterol 51 mg/dL (29-60) 04/09/18 06:10 Lipase 103 U/L (23-300) 04/08/18 22:25 Procalcitonin < 0.05 NG/ML (0.19-0.49) L 04/08/18 22:25 Urine Color Yellow (YELLOW) 04/08/18 22:55 Urine Appearance Slight-cloudy (CLEAR) 04/08/18 22:55 Urine pH 6.0 (4.7-8.0) 04/08/18 22:55 Ur Specific [place] 1.020 (1.005-1.035) 04/08/18 22:55 Urine Protein Negative mg/dL (<30 mg/dL) 04/08/18 22:55 Urine Glucose (UA) Negative mg/dL (NEGATIVE) 04/08/18 22:55 Urine Ketones Negative mg/dL (NEGATIVE) 04/08/18 22:55 Urine Blood Moderate (NEGATIVE) H 04/08/18 22:55 Urine Nitrate Positive (NEGATIVE) H 04/08/18 22:55 Urine Bilirubin Negative (NEGATIVE) 04/08/18 22:55 Urine Urobilinogen 0.2 E.U./dL (<1 E.U./dL) 04/08/18 22:55 Ur Leukocyte Esterase Negative Fred/uL (NEGATIVE) 04/08/18 22:55 Urine RBC 1 - 3 /hpf (0-2) H 04/08/18 22:55 Urine WBC 0 - 2 /hpf (0-6) 04/08/18 22:55 Ur Epithelial Cells None /hpf (0-5) 04/08/18 22:55 Urine Bacteria Many /hpf (NONE) 04/08/18 22:55 HIV 1&2 Ag/Ab, 4th Gen Nonreactive (Nonreactive) 04/09/18 07:00 - Hospital Course Hospital Course: Upon Admission Pt is a 73 yo female with PMH of hypertension, hyperlipidemia, gastritis, diverticulitis, asthma or COPD, and arthritis presents with sharp, intermittent right lower quadrant pain that radiates to the right flank that started in 11/2017. Patient said that Dr. Ferguson gave unknown medications that helped resolves symptoms. No exacerbating symptoms present. Patient went for appointment with Dr. Ferguson on April 02, 2018, who did a urinanalysis at the time and stated that the patient had a UTI. Hospitalization Likely antibiotic resistant UTI, failure of outpatient antibiotic therapy. UA: moderate blood, positive nitrite, negative leukocyte esterase, 1-3 RBC, 0-2 WBC, many bacteria. Urine cx pos for gram neg griselda. Blood cx x 2 neg x 24 hrs. ID recommended Meropenem. Abdominal CT: No R nephrolithiasis or obstructive uropathy. Parapelvic cyst versus hydronephrosis in lower poles of kidneys. Renal ultrasound: simple cyst upper pole R kidney 1/8 cm. Remainder of exam appears unremarkable b/l. Urology consult for Dr. Torres requested as per PMD Dr. Ferguson. ID consulted (Dr. Barraza). Pt COPD and asthma were treated with brovana, pulmicort. Discharge Pt advised to please follow up with primary care doctor, Dr. Ferguson, within 1 week of discharge. Pt has a midline for 7 days for IV antibiotics. Will need Merrem 1gm EVERY 8hrs for 1 week. After having completed the antibiotics the midline will need to be removed. Will also need blood work to do be done with Dr. Ferguson in 1 week (CBC, CMP). Recommend to follow up with Urology, Dr. Torres, as an outpatient within 1 week of discharge. Continue home medications as prescribed. If symptoms return, please go to the nearest emergency department. - Date & Time of H&P Date of H&P: 04/11/18 Time of H&P: 07:00 Discharge Exam - Head Exam Head Exam: NORMAL INSPECTION - Eye Exam Eye Exam: EOMI - ENT Exam ENT Exam: Mucous Membranes Moist - Neck Exam Neck exam: Full Rom - Respiratory Exam Respiratory Exam: NORMAL BREATHING PATTERN. absent: Accessory Muscle Use, Wheezes, Respiratory Distress - Cardiovascular Exam Cardiovascular Exam: RRR, +S1, +S2. absent: Diastolic murmur, Systolic Murmur - GI/Abdominal Exam GI & Abdominal Exam: Normal Bowel Sounds, Soft, Tenderness, Unremarkable - Extremities Exam Extremities exam: full ROM, pedal pulses present - Back Exam Back exam: CVA tenderness (R) - Neurological Exam Neurological exam: Alert, Oriented x3 - Psychiatric Exam Psychiatric exam: Normal Affect, Normal Mood - Skin Skin Exam: Dry, Intact, Warm Discharge Plan - Follow Up Plan Condition: STABLE Disposition: HOME/ ROUTINE Instructions: Urinary Tract Infection, Adult (DC), Flank Pain (DC), Urinary Tract Infection in Women (DC) Additional Instructions: Please follow up with your primary care doctor, Dr. Ferguson, within 1 week of discharge. You have a midline for 7 days for IV antibiotics. You will need Merrem 1gm EVERY 8hrs for 1 week. After you have completed the antibiotics your midline will need to be removed. You will also need blood work to do be done with Dr. Ferguson in 1 week (CBC, CMP) Recommend to follow up with Urology, Dr. Torres, as an outpatient within 1 week of discharge. Continue home medications as prescribed. If your symptoms return, please go to the nearest emergency department. Referrals: Sid Ferguson MD [Primary Care Provider] - <Magdy Jacobs - Last Filed: 04/11/18 17:32> Provider - Provider Date of Admission: 04/09/18 00:12 Attending physician: Magdy Jacobs MD Primary care physician: Sid Ferguson MD Consults: 04/09/18 06:12 Consult [Physician Consult] Routine Comment: Consulting Provider: Aryan Poon Consulting Physician: Aryan Poon Reason for Consult: antibiotic resistant uti 04/10/18 12:33 Consult [Physician Consult] Routine Comment: Consulting Provider: John Torres Consulting Physician: John Torres Reason for Consult: Dr Ferguson, PMD specifically requested eval for UTI/ nonobs stone Hospital Course - Lab Results Lab Results: Micro Results 04/08/18 22:55 Urine Random Urine Culture - Final Escherichia Coli 04/08/18 22:36 Blood Blood Culture - Preliminary NO GROWTH AFTER 48 HOURS 04/08/18 22:06 Blood Blood Culture - Preliminary NO GROWTH AFTER 48 HOURS Most Recent Lab Values WBC 5.1 10^3/uL (4.5-11.0) 04/11/18 06:30 RBC 3.75 10^6/uL (3.5-6.1) 04/11/18 06:30 Hgb 11.2 g/dL (12.0-16.0) L 04/11/18 06:30 Hct 35.7 % (36.0-48.0) L 04/11/18 06:30 MCV 95.2 fl (80.0-105.0) 04/11/18 06:30 MCH 29.9 pg (25.0-35.0) 04/11/18 06:30 MCHC 31.4 g/dl (31.0-37.0) 04/11/18 06:30 RDW 13.7 % (11.5-14.5) 04/11/18 06:30 Plt Count 207 10^3/uL (120.0-450.0) 04/11/18 06:30 MPV 10.6 fl (7.0-11.0) 04/11/18 06:30 Gran % 55.0 % (50.0-68.0) 04/11/18 06:30 Lymph % (Auto) 34.5 % (22.0-35.0) 04/11/18 06:30 Bowie % (Auto) 7.0 % (1.0-6.0) H 04/11/18 06:30 Eos % (Auto) 3.1 % (1.5-5.0) 04/11/18 06:30 Baso % (Auto) 0.4 % (0.0-3.0) 04/11/18 06:30 Gran # 2.82 (1.4-6.5) 04/11/18 06:30 Lymph # (Auto) 1.8 (1.2-3.4) 04/11/18 06:30 Bowie # (Auto) 0.4 (0.1-0.6) 04/11/18 06:30 Eos # (Auto) 0.2 (0.0-0.7) 04/11/18 06:30 Baso # (Auto) 0.02 K/mm3 (0.0-2.0) 04/11/18 06:30 Sodium 141 mmol/L (132-148) 04/11/18 06:30 Potassium 4.1 mmol/L (3.6-5.0) 04/11/18 06:30 Chloride 106 mmol/L (98-107) 04/11/18 06:30 Carbon Dioxide 31 mmol/L (21-33) 04/11/18 06:30 Anion Gap 8 (10-20) L 04/11/18 06:30 BUN 14 mg/dL (7-21) 04/11/18 06:30 Creatinine 0.8 mg/dl (0.7-1.2) 04/11/18 06:30 Est GFR ( Amer) > 60 04/11/18 06:30 Est GFR (Non-Af Amer) > 60 04/11/18 06:30 POC Glucose (mg/dL) 111 mg/dL (65-110) H 04/10/18 10:31 Random Glucose 95 mg/dL (70-110) 04/11/18 06:30 Hemoglobin A1c 5.4 % (4.2-6.5) 04/09/18 07:00 Lactic Acid 0.9 mmol/L (0.7-2.1) 04/09/18 02:25 Calcium 8.7 mg/dL (8.4-10.5) 04/11/18 06:30 Phosphorus 2.6 mg/dL (2.5-4.5) 04/09/18 05:12 Magnesium 2.3 mg/dL (1.7-2.2) H 04/09/18 05:12 Total Bilirubin 0.3 mg/dL (0.2-1.3) 04/11/18 06:30 AST 28 U/L (14-36) 04/11/18 06:30 ALT 28 U/L (7-56) 04/11/18 06:30 Alkaline Phosphatase 80 U/L (38-126) 04/11/18 06:30 Total Protein 6.5 g/dL (5.8-8.3) 04/11/18 06:30 Albumin 3.6 g/dL (3.0-4.8) 04/11/18 06:30 Globulin 2.8 gm/dL 04/11/18 06:30 Albumin/Globulin Ratio 1.3 (1.1-1.8) 04/11/18 06:30 Triglycerides 56 mg/dL (35-160) 04/09/18 06:10 Cholesterol 151 mg/dL (130-200) 04/09/18 06:10 LDL Cholesterol Direct 80 mg/dL (0-129) 04/09/18 06:10 HDL Cholesterol 51 mg/dL (29-60) 04/09/18 06:10 Lipase 103 U/L (23-300) 04/08/18 22:25 Procalcitonin < 0.05 NG/ML (0.19-0.49) L 04/08/18 22:25 Urine Color Yellow (YELLOW) 04/08/18 22:55 Urine Appearance Slight-cloudy (CLEAR) 04/08/18 22:55 Urine pH 6.0 (4.7-8.0) 04/08/18 22:55 Ur Specific [place] 1.020 (1.005-1.035) 04/08/18 22:55 Urine Protein Negative mg/dL (<30 mg/dL) 04/08/18 22:55 Urine Glucose (UA) Negative mg/dL (NEGATIVE) 04/08/18 22:55 Urine Ketones Negative mg/dL (NEGATIVE) 04/08/18 22:55 Urine Blood Moderate (NEGATIVE) H 04/08/18 22:55 Urine Nitrate Positive (NEGATIVE) H 04/08/18 22:55 Urine Bilirubin Negative (NEGATIVE) 04/08/18 22:55 Urine Urobilinogen 0.2 E.U./dL (<1 E.U./dL) 04/08/18 22:55 Ur Leukocyte Esterase Negative Fred/uL (NEGATIVE) 04/08/18 22:55 Urine RBC 1 - 3 /hpf (0-2) H 04/08/18 22:55 Urine WBC 0 - 2 /hpf (0-6) 04/08/18 22:55 Ur Epithelial Cells None /hpf (0-5) 04/08/18 22:55 Urine Bacteria Many /hpf (NONE) 04/08/18 22:55 HIV 1&2 Ag/Ab, 4th Gen Nonreactive (Nonreactive) 04/09/18 07:00 Attending/Attestation - Attestation I have personally seen and examined this patient.: Yes I have fully participated in the care of the patient.: Yes I have reviewed all pertinent clinical information, including history, physical exam and plan: Yes Notes (Text): 04/11/18 17:30 Attending note; Patient seen and examined with resident. Patient is alert and awake. Still complaining of flank pain. Complaining of burning urination. Denies any hematuria. Tolerating diet. Patient is a 73 year old female with past medical history of hypertension, hyperlipidemia, gastritis, diverticulitis, asthma or COPD, and arthritis is admitted for urinary symptoms and flank pain. 1. Recurrent UTI; E coli UTI. Patient is allergic to penicillin. Previous urine cultures are not sensitive to ciprofloxacin or levofloxacin. Started on IV meropenem. ID evaluation appreciated. Advised to complete 7 days of IV meropenem. Status post midline placement. Home IV antibiotics arranged by porter sample case. 2. Clinical pyelonephritis; patient has right flank pain. CT abdomen and pelvis showed Punctate non-obstructing stone in interpolar region of the L kidney, and 4 mm non-obstructing stone in lower pole of L kidney. Extensive colonic diverticulosis, worse in the sigmoid colon w/o CT evidence for acute diverticulitis. Renal ultrasound is negative for hydronephrosis. Case discussed with urology in detail. Follow-up with Dr. Torres as outpatient. 3. Hypertension; continue Cozaar. Discharge patient home with IV antibiotics therapy at home. Upon discharge the patient will follow-up with PMD Dr. Ferguson. Case discussed with Dr. Ferguson in detail. Patient spoke to Dr. Ferguson over the phone. The diagnosis, treatment option explained to the patient in detail. 04/11/18 17:30
== END 2018-04-11 19:55 | disposition home or self-care (01) ==
LOC: ED 21:28 → ERH 04-09 00:12 → 5RNO 04-09 02:22
PROVIDERS: ADMIT Hospitalist; ATTEND Internal Medicine
DX: N12 Tubulo-interstitial nephritis, not specified as acute or chronic (principal); B96.20 Unspecified Escherichia coli [E. coli] as the cause of diseases classified elsewhere; I10 Essential (primary) hypertension; J44.9 Chronic obstructive pulmonary disease, unspecified; E78.5 Hyperlipidemia, unspecified; Z87.891 Personal history of nicotine dependence; Z88.0 Allergy status to penicillin; K57.30 Diverticulosis of large intestine without perforation or abscess without bleeding
CPT/HCPCS: 36415; 74176; 76770; 80053; 80061; 81001; 82948; 83036; 83605; 83690; 83735; 84100; 84145; 85025; 85027; 87040; 87086; 87181; 87389; 93005; 94640; 94760; 96360; 96365; 99284; G0378; J2185; J7030

== ENCOUNTER 2018-05-29 21:07 | Observation (INO) | payer BC, MEDICARE ==
--- NOTE | 2018-05-29 21:54 | ED PDOC ---
Arrival/HPI - General Chief Complaint: Chest Pain Time Seen by Provider: 05/29/18 21:17 Historian: Patient - History of Present Illness Narrative History of Present Illness (Text): 05/29/18 21:52 A 73 year old female, whose past medical history includes hypertension, hyperlipidemia, and gastritis, presents to the emergency department complaining of onset burning chest radiating to left shoulder starting earlier today. Patient reports has never experienced symptoms like this before. Patient denies any shortness of breath, fever, chills, cough, nausea, vomiting, diarrhea, abdominal pain, or any other complaints at this time. Past Medical History - Provider Review Nursing Documentation Reviewed: Yes - Infectious Disease Hx of Infectious Diseases: None - Tetanus Immunization Tetanus Immunization: Unknown - Cardiac Hx Pacemaker: No - Pulmonary Hx Respiratory Disorders: No - Neurological Hx Dizziness: Yes - HEENT Hx HEENT Disorder: No - Renal Hx Renal Disorder: No - Endocrine/Metabolic Hx Endocrine Disorders: No - Hematological/Oncological Hx Cancer: No - Integumentary Hx Dermatological Disorder: No - Musculoskeletal/Rheumatological Hx Arthritis: Yes - Gastrointestinal Hx Diverticulitis: Yes Hx Gastroesophageal Reflux: Yes Other/Comment: abdominal pain - Genitourinary/Gynecological Hx Genitourinary Disorders: No - Psychiatric Hx Anxiety: Yes Hx Depression: Yes Hx Substance Use: No - Past Surgical History Past Surgical History: Non-Contributing - Surgical History Hx Mastectomy: No - Anesthesia Hx Anesthesia: Yes Hx Anesthesia Reactions: No Hx Malignant Hyperthermia: No - Suicidal Assessment Feels Threatened In Home Enviroment: No Family/Social History - Physician Review Nursing Documentation Reviewed: Yes Family/Social History: No Known Family HX Smoking Status: Former Smoker Hx Alcohol Use: No Hx Substance Use: No Hx Substance Use Treatment: No Allergies/Home Meds Allergies/Adverse Reactions: Allergies Penicillins Allergy (Verified 04/08/18 21:57) RASH Home Medications: Home Meds Medication Instructions Recorded Confirmed Famotidine [Pepcid] 20 mg PO DAILY 02/19/16 04/08/18 Simvastatin [Zocor] 20 mg PO DAILY 07/07/16 04/08/18 Clonazepam [Klonopin] 0.5 mg PO DAILY 04/08/18 04/08/18 Levocetirizine Dihydrochloride 5 mg PO DAILY 04/08/18 04/08/18 [Xyzal] Losartan Potassium 25 mg PO DAILY 04/08/18 04/08/18 Montelukast [Singulair] 10 mg PO DAILY 04/08/18 04/08/18 Review of Systems - Physician Review All systems were reviewed & negative as marked: Yes - Review of Systems Constitutional: absent: Fevers, Night Sweats Respiratory: absent: SOB, Cough Cardiovascular: Chest Pain (burning sensation, radiating to left shoulder.) Gastrointestinal: absent: Abdominal Pain, Diarrhea, Nausea, Vomiting Physical Exam Vital Signs Reviewed: Yes Vital Signs Temp Pulse Resp BP Pulse Ox 05/29/18 21:27 97.7 F 73 18 138/73 95 Temperature: Afebrile Blood Pressure: Normal Pulse: Regular Respiratory Rate: Normal Appearance: Positive for: Well-Appearing, Non-Toxic, Comfortable Pain Distress: None Mental Status: Positive for: Alert and Oriented X 3 - Systems Exam Head: Present: Atraumatic, Normocephalic Pupils: Present: PERRL Extroacular Muscles: Present: EOMI Conjunctiva: Present: Normal Mouth: Present: Moist Mucous Membranes Neck: Present: Normal Range of Motion Respiratory/Chest: Present: Clear to Auscultation, Good Air Exchange. No: Respiratory Distress, Accessory Muscle Use Cardiovascular: Present: Regular Rate and Rhythm, Normal S1, S2. No: Murmurs Abdomen: No: Tenderness, Distention, Peritoneal Signs Back: Present: Normal Inspection Upper Extremity: Present: Normal Inspection. No: Cyanosis, Edema Lower Extremity: Present: Normal Inspection. No: Edema Neurological: Present: GCS=15, CN II-XII Intact, Speech Normal Skin: Present: Warm, Dry, Normal Color. No: Rashes Psychiatric: Present: Alert, Oriented x 3, Normal Insight, Normal Concentration Medical Decision Making ED Course and Treatment: 05/29/18 21:53 Impression: 73 year old female with burning chest pain radiating to left shoulder. Physical exam is benign. Plan: -- EKG -- Chest X-ray -- Labs -- Aspirin -- Pepcid -- Protonix -- Reassess and disposition Progress Notes: EKG: Ordered, reviewed, and independently interpreted the EKG. Rate : 72 BPM Rhythm : NSR Interpretation : No acute changes. Comparison : No previous EKG for comparison. 05/30/18 00:27 Chest X-ray shows no acute process. - RAD Interpretation Radiology Orders: 05/29/18 21:49 CHEST PORTABLE [RAD] Stat - Medication Orders Current Medication Orders: Discontinued Medications Aspirin (Aspirin) 325 mg PO ONCE STA Stop: 05/29/18 21:50 Famotidine (Pepcid) 20 mg IVP STAT STA Stop: 05/29/18 21:50 Pantoprazole Sodium (Protonix Inj) 40 mg IVP ONCE STA Stop: 05/29/18 21:50 - Scribe Statement The provider has reviewed the documentation as recorded by the Nataly Abdalla Provider Scribe Attestation: All medical record entries made by the Nataly were at my direction and personally dictated by me. I have reviewed the chart and agree that the record accurately reflects my personal performance of the history, physical exam, medical decision making, and the department course for this patient. I have also personally directed, reviewed, and agree with the discharge instructions and disposition. Disposition/Present on Arrival - Present on Arrival Any Indicators Present on Arrival: No History of DVT/PE: No History of Uncontrolled Diabetes: No Urinary Catheter: No History of Decub. Ulcer: No History Surgical Site Infection Following: None - Disposition Have Diagnosis and Disposition been Completed?: Yes Diagnosis: Chest pain Disposition: HOSPITALIZED Disposition Time: 00:40 Condition: STABLE Discharge Instructions (ExitCare): Chest Pain (ED) Forms: [employer] (Faroese)
[2018-05-29 22:15] LABS: ALB/GLOB RATIO 1.4 (1.1-1.8); ALBUMIN 4.2 g/dL (3.0-4.8); ALT/SGPT 23 U/L (7-56); AST/SGOT 28 U/L (14-36); BLOOD UREA NITROGEN 20 mg/dL (7-21); CALCIUM 9.2 mg/dL (8.4-10.5); GFR NON-AFRICAN AMERICAN > 60; HEMOGLOBIN 10.8 g/dL (12.0-16.0); MEAN CELL VOLUME 93.8 fl (80.0-105.0); MEAN CORPUSCULAR HEMOGLOBIN 30.3 pg (25.0-35.0); MEAN CORPUSCULAR HGB CONC 32.2 g/dl (31.0-37.0); MEAN PLATELET VOLUME 10.8 fl (7.0-11.0); RBC 3.57 10^6/uL (3.5-6.1); RED CELL DISTRIBUTION WIDTH 13.3 % (11.5-14.5); WHITE BLOOD COUNT 6.6 10^3/uL (4.5-11.0)
[2018-05-29 22:19] LABS: INR 1.02; PARTIAL THROMBOPLASTIN TIME 38.1 Seconds (26.9-38.3); PROTHROMBIN TIME 11.3 SECONDS (9.4-12.5)
[2018-05-29 22:26] LABS: TROPONIN I < 0.01 ng/mL
--- NOTE | 2018-05-30 03:22 | CP.PCM.HP ---
<JeniebenezerlatoyaDavid - Last Filed: 05/30/18 03:53> History of Present Illness - History of Present Illness History of Present Illness: PGY1 Medicine History and Physical Exam Note for Dr. Botello CC: chest pain This is a 73-year-old female with PMH of hypertension, hyperlipidemia, and gastritis, who presents to [facility] ED complaining of chest pain x1 day. Patient reports that earlier today she was upset because she says she was owed money by someone who could not pay her, and she states that she needs the money. Patient went to the mall to try and relax, when she began experiencing new-onset burning chest pain that radiates to left shoulder. Patient says the pain was constant and lasted a few hours. Patient rates the pain 6/10 in severity, and she attempted to relieve the pain with baby aspirin, but this did not help. Patient reports has never experienced symptoms like this before. Patient denies any shortness of breath, fever, chills, cough, nausea, vomiting, diarrhea, abdominal pain, or any other complaints at this time. PMH: hypertension, hyperlipidemia, and gastritis PSH: Face lift, labrum repair, tubal ligation, liposuction, right knee surgery FMHx: Patient denies Allergies: penicillin: mild rash Social Hx: stopped smoking 15 years ago. She used to smoke 3 or more cigarettes a day for 50 years. She stopped drinking 15 years ago. She used to drink 4 drinks on the weekend. She denied recreational drug use PMD: Dr. Ferguson Doole Rx: losartan, simvastatin, pepcid, vitamin D, vitamin B12, montelukast, symbicort Present on Admission - Present on Admission Any Indicators Present on Admission: No History of DVT/PE: No History of Uncontrolled Diabetes: No Urinary Catheter: No Decubitus Ulcer Present: No Review of Systems - Review of Systems All systems: reviewed and no additional remarkable complaints except (as per HPI) Past Patient History - Infectious Disease Hx of Infectious Diseases: None - Tetanus Immunizations Tetanus Immunization: Unknown - Past Medical History & Family History Past Medical History?: Yes - Past Social History Smoking Status: Former Smoker - CARDIAC Hx Pacemaker: No - PULMONARY Hx Respiratory Disorders: No - NEUROLOGICAL Hx Dizziness: Yes - HEENT Hx HEENT Problems: No - RENAL Hx Chronic Kidney Disease: No - ENDOCRINE/METABOLIC Hx Endocrine Disorders: No - HEMATOLOGICAL/ONCOLOGICAL Hx Cancer: No - INTEGUMENTARY Hx Dermatological Problems: No - MUSCULOSKELETAL/RHEUMATOLOGICAL Hx Arthritis: Yes - GASTROINTESTINAL Hx Diverticulitis: Yes Hx Gastroesophageal Reflux: Yes Other/Comment: abdominal pain - GENITOURINARY/GYNECOLOGICAL Hx Genitourinary Disorders: No - PSYCHIATRIC Hx Anxiety: Yes Hx Depression: Yes Hx Substance Use: No - SURGICAL HISTORY Hx Mastectomy: No - ANESTHESIA Hx Anesthesia: Yes Hx Anesthesia Reactions: No Hx Malignant Hyperthermia: No Meds Allergies/Adverse Reactions: Allergies Allergy/AdvReac Type Severity Reaction Status Date / Time Penicillins Allergy RASH Verified 04/08/18 21:57 Physical Exam - Constitutional Appears: Non-toxic, No Acute Distress - Head Exam Head Exam: ATRAUMATIC, NORMAL INSPECTION, NORMOCEPHALIC - Eye Exam Eye Exam: EOMI, Normal appearance, PERRL Pupil Exam: NORMAL ACCOMODATION - ENT Exam ENT Exam: Mucous Membranes Moist, Normal Exam - Neck Exam Neck exam: Positive for: Normal Inspection - Respiratory Exam Respiratory Exam: Clear to Auscultation Bilateral, NORMAL BREATHING PATTERN. absent: Chest Wall Tenderness, Decreased Breath Sounds, Prolonged Expiratory Phase, Rales, Rhonchi - Cardiovascular Exam Cardiovascular Exam: REGULAR RHYTHM, +S1, +S2 - GI/Abdominal Exam GI & Abdominal Exam: Normal Bowel Sounds, Soft. absent: Tenderness - Extremities Exam Extremities exam: Positive for: normal inspection - Back Exam Back exam: NORMAL INSPECTION - Neurological Exam Neurological exam: CN II-XII Intact, Oriented x3 - Psychiatric Exam Psychiatric exam: Anxious, Normal Affect, Normal Mood Results - Vital Signs Recent Vital Signs: Last Vital Signs Temp 97.7 F 05/29/18 21:27 Pulse 68 05/30/18 02:00 Resp 18 05/30/18 02:00 BP 132/67 05/30/18 02:00 Pulse Ox 95 05/30/18 02:00 - Labs Result Diagrams: 05/29/18 21:55 05/29/18 21:55 Labs: Laboratory Results - last 24 hr 05/29/18 05/29/18 05/29/18 21:55 21:55 21:55 WBC 6.6 D RBC 3.57 Hgb 10.8 L Hct 33.5 L MCV 93.8 MCH 30.3 MCHC 32.2 RDW 13.3 Plt Count 218 MPV 10.8 PT 11.3 INR 1.02 APTT 38.1 Sodium 138 Potassium 4.0 Chloride 104 Carbon Dioxide 28 Anion Gap 11 BUN 20 Creatinine 0.9 Est GFR ( Amer) > 60 Est GFR (Non-Af Amer) > 60 Random Glucose 101 Calcium 9.2 Total Bilirubin 0.3 AST 28 ALT 23 Alkaline Phosphatase 97 Lactate Dehydrogenase 469 Total Creatine Kinase 64 Troponin I < 0.01 Total Protein 7.3 Albumin 4.2 Globulin 3.1 Albumin/Globulin Ratio 1.4 Assessment & Plan - Assessment and Plan (Free Text) Assessment: This is a 73-year-old female with PMH of hypertension, hyperlipidemia, and gastritis, who presents to [facility] ED complaining of chest pain x1 day. Atypical chest pain, ACS rule-out - EKG: NSR at 72bpm - CXR: F/U official report - ASA 325mg PO once given in ED - Continue ASA 81mg po daily - Cardiology consult in AM - Troponin x1 negative - F/U Troponin Q6H x2 - F/U EKG Q6H x2 - F/U TSH - Tylenol PRN for pain - HHD - Monitor History of Hypertension - BP: 132/67 - Patient is compliant with medications (takes losartan) - Continue with home Losartan History of Hyperlipidemia - F/U lipid panel PPx: - GI prophylaxis: Protonix 40 mg daily - DVT prophylaxis: Lovenox 40 mg daily Patient plan discussed with Dr. Rosmery Lu PGY1 <Darian Botello - Last Filed: 05/30/18 11:04> Results - Vital Signs Recent Vital Signs: Last Vital Signs Temp 98.1 F 05/30/18 07:59 Pulse 67 05/30/18 10:46 Resp 20 05/30/18 07:59 BP 121/74 05/30/18 10:46 Pulse Ox 95 05/30/18 07:59 - Labs Result Diagrams: 05/29/18 21:55 05/29/18 21:55 Labs: Laboratory Results - last 24 hr 05/29/18 05/29/18 05/29/18 21:55 21:55 21:55 WBC 6.6 D RBC 3.57 Hgb 10.8 L Hct 33.5 L MCV 93.8 MCH 30.3 MCHC 32.2 RDW 13.3 Plt Count 218 MPV 10.8 PT 11.3 INR 1.02 APTT 38.1 Sodium 138 Potassium 4.0 Chloride 104 Carbon Dioxide 28 Anion Gap 11 BUN 20 Creatinine 0.9 Est GFR ( Amer) > 60 Est GFR (Non-Af Amer) > 60 Random Glucose 101 Calcium 9.2 Phosphorus Magnesium Total Bilirubin 0.3 AST 28 ALT 23 Alkaline Phosphatase 97 Lactate Dehydrogenase 469 Total Creatine Kinase 64 Troponin I < 0.01 Total Protein 7.3 Albumin 4.2 Globulin 3.1 Albumin/Globulin Ratio 1.4 Triglycerides Cholesterol LDL Cholesterol Direct HDL Cholesterol TSH 3rd Generation 05/30/18 05/30/18 05/30/18 07:00 07:00 10:15 WBC RBC Hgb Hct MCV MCH MCHC RDW Plt Count MPV PT INR APTT Sodium Potassium Chloride Carbon Dioxide Anion Gap BUN Creatinine Est GFR ( Amer) Est GFR (Non-Af Amer) Random Glucose Calcium Phosphorus 3.2 Magnesium 2.2 Total Bilirubin AST ALT Alkaline Phosphatase Lactate Dehydrogenase Total Creatine Kinase Troponin I < 0.01 < 0.01 Total Protein Albumin Globulin Albumin/Globulin Ratio Triglycerides 159 Cholesterol 170 LDL Cholesterol Direct 95 HDL Cholesterol 47 TSH 3rd Generation 3.03 Attending/Attestation - Attestation I have personally seen and examined this patient.: No I have fully participated in the care of the patient.: Yes I have reviewed all pertinent clinical information: Yes
[2018-05-30 04:09] VITALS: BMI 24.1
[2018-05-30 04:17] VITALS: RESP 20
[2018-05-30] MEDS: Pantoprazole 40 mg EC Tab PO SCH (05:19)
[2018-05-30 07:31] LABS: HDL CHOLESTEROL 47 mg/dL (29-60)
[2018-05-30 07:41] LABS: TROPONIN I < 0.01 ng/mL
[2018-05-30 07:42] LABS: LDL CHOLESTEROL 95 mg/dL (0-129)
--- NOTE | 2018-05-30 09:38 | RAD ---
Date of service: 05/29/2018 HISTORY: pain COMPARISON: 04/08/2018 FINDINGS: LUNGS: No active pulmonary disease. PLEURA: No significant pleural effusion identified, no pneumothorax apparent. CARDIOVASCULAR: No aortic atherosclerotic calcification present. Normal cardiac size. No pulmonary vascular congestion. OSSEOUS STRUCTURES: No significant abnormalities. VISUALIZED UPPER ABDOMEN: Normal. OTHER FINDINGS: None. IMPRESSION: No active disease.
[2018-05-30] MEDS: Enoxaparin 40 mg Syringe SC SCH (10:45)
--- NOTE | 2018-05-30 10:58 | CARD ---
APPROVED REPORT Date of service: 05/30/2018 EKG Measurement Heart [id number] <Conclusion> Normal sinus rhythm Normal ECG
--- NOTE | 2018-05-30 16:17 | CARD ---
APPROVED REPORT Date of service: 05/30/2018 EKG Measurement Heart [id number] <Conclusion> Normal sinus rhythm Anteroseptal infarct, age undetermined Abnormal ECG
--- NOTE | 2018-05-30 17:59 | CARD ---
APPROVED REPORT Date of service: 05/30/2018 EXAM: Two-dimensional and M-mode echocardiogram with Doppler and color Doppler. INDICATION Chest Pain 2D DIMENSIONS Left Atrium (2D)3.7 (1.6-4.0cm)IVSd1.0 (0.7-1.1cm) LVDd3.9 (3.9-5.9cm)PWd1.1 (0.7-1.1cm) LVDs2.7 (2.5-4.0cm)FS (%) 29.8 % LVEF (%)57.5 (>50%) M-Mode DIMENSIONS Aortic Root2.90 (2.2-3.7cm)Aortic Cusp Exc.1.60 (1.5-2.0cm) Aortic Valve AoV Peak Evjjcnem774.0cm/Danish Peak GR.7mmHg Mitral Valve MV E Rcmugwet96.1cm/sMV A Lkcuhsmk23.4cm/sE/A ratio0.9 TDI Lateral E' Peak V7.21cm/sMedial E' Peak V9.16cm/sE/Lateral E'9.7 E/Medial E'7.7 Pulmonary Valve PV Peak Hkvjufny95.7cm/sPV Peak Grad.2mmHg Tricuspid Valve TR Peak Vntpjfey371tw/sRAP ELQDRYQW71meBfJB Peak Gr.30mmHg [id number] LEFT VENTRICLE The left ventricle is normal size. The left ventricular function is normal. The left ventricular ejection fraction is within the normal range.Ej.Fr: 58%. RIGHT VENTRICLE The right ventricle is normal size. The right ventricular systolic function is normal. ATRIA The left atrium size is normal. The right atrium size is normal. AORTIC VALVE The aortic valve is normal in structure. MITRAL VALVE The mitral valve is normal in structure. Mitral regurgitation is trace to mild. TRICUSPID VALVE The tricuspid valve is normal in structure. There is mild tricuspid regurgitation.RVSP: 40mm Hg. PERICARDIAL EFFUSION There is no pericardial effusion. <Conclusion> The left ventricle is normal size. LV Systolic Function Normal. The left ventricular ejection fraction is within the normal range.Ej.Fr: 58%. Right Ventricular Size Normal. The right ventricular systolic function is normal. The left atrium size is normal. The right atrium size is normal. The aortic valve is normal in structure. The mitral valve is normal in structure. Mitral regurgitation is trace to mild. The tricuspid valve is normal in structure. There is mild tricuspid regurgitation.RVSP: 40mm Hg.Mild Pulmonary Hypertension. There is no pericardial effusion.
--- NOTE | 2018-05-30 21:15 | CON ---
DATE: 05/30/2018 CARDIOLOGY CONSULT REASON FOR CONSULTATION: Chest pain. HISTORY OF PRESENT ILLNESS: The patient is a 73-year-old female, originally from [facility], has a history of hypertension, presented because of chest pain. The patient described retrosternal burning chest pain after she had an argument with someone that money and refused to return the money back to her. The patient is being followed by her dry press operator helper, Dr. Ramos in [place] and underwent stress test last year that was reported to be normal according to the patient. SOCIAL HISTORY: The patient is a former smoker. MEDICATIONS: Cozaar 25 mg once a day, aspirin 81 mg once a day, Lipitor 10 mg once a day, and Lovenox 40 mg subcutaneously once a day. REVIEW OF SYSTEMS: No nausea or vomiting. No fever or chills. No productive cough. PHYSICAL EXAMINATION: GENERAL: The patient is an elderly female, who does not appear to be in acute distress. VITAL SIGNS: Blood pressure 121/74, heart rate 67, temperature 98.1, and respirations 20. HEENT: Normocephalic. CHEST: Clear. HEART: S1 and S2 regular. EXTREMITIES: No edema. LABORATORY DATA: Today's hemoglobin and hematocrit 10.8 and 33.5; white count and platelet count are within normal limits. PT/PTT and INR are within normal limits. SMA-7 is within normal limits. Three sets of troponins are negative. TSH level is within normal limits. Lipid profile is within normal limits. EKG revealed normal sinus rhythm. ASSESSMENT: 1. Chest pain, myocardial infarction is ruled out. 2. Hypertension. RECOMMENDATIONS: Continue Cozaar 25 mg once a day, aspirin 81 mg once a day, and Lipitor 10 mg once a day. Obtain echocardiac study. If there is no evidence of segmental hypokinesis, the patient can be discharged on medical management to follow up with her dry press operator helper, Dr. Ramos as an outpatient. Titus Yañez MD
[2018-05-31] MEDS: Pantoprazole 40 mg EC Tab PO SCH (06:23)
[2018-05-31 07:07] VITALS: BP 135/72; PULSE 78; TEMP 98.2; O2SAT 94
[2018-05-31] MEDS: Enoxaparin 40 mg Syringe SC SCH (09:13)
--- NOTE | 2018-05-31 13:38 | CP.PCM.DIS ---
<Reilly Stout L - Last Filed: 05/31/18 13:39> Provider - Provider Date of Admission: 05/30/18 00:40 Attending physician: Sara Cervantes DO Consults: 05/30/18 04:15 Cardiology Consult Routine Comment: Consulting Provider: Titus Yañez Consulting Physician: Titus Yañez Reason for Consult: chest pain Time Spent in preparation of Discharge (in minutes): 35 Diagnosis - Discharge Diagnosis (1) Chest pain Status: Acute (2) Nausea, vomiting, and diarrhea Status: Acute Hospital Course - Lab Results Lab Results: Most Recent Lab Values WBC 6.6 10^3/uL (4.5-11.0) D 05/29/18 21:55 RBC 3.57 10^6/uL (3.5-6.1) 05/29/18 21:55 Hgb 10.8 g/dL (12.0-16.0) L 05/29/18 21:55 Hct 33.5 % (36.0-48.0) L 05/29/18 21:55 MCV 93.8 fl (80.0-105.0) 05/29/18 21:55 MCH 30.3 pg (25.0-35.0) 05/29/18 21:55 MCHC 32.2 g/dl (31.0-37.0) 05/29/18 21:55 RDW 13.3 % (11.5-14.5) 05/29/18 21:55 Plt Count 218 10^3/uL (120.0-450.0) 05/29/18 21:55 MPV 10.8 fl (7.0-11.0) 05/29/18 21:55 PT 11.3 SECONDS (9.4-12.5) 05/29/18 21:55 INR 1.02 05/29/18 21:55 APTT 38.1 Seconds (26.9-38.3) 05/29/18 21:55 D-Dimer, Quantitative < 200 ng/mlDDU (0-243) 05/30/18 11:00 Sodium 138 mmol/L (132-148) 05/29/18 21:55 Potassium 4.0 mmol/L (3.6-5.0) 05/29/18 21:55 Chloride 104 mmol/L (98-107) 05/29/18 21:55 Carbon Dioxide 28 mmol/L (21-33) 05/29/18 21:55 Anion Gap 11 (10-20) 05/29/18 21:55 BUN 20 mg/dL (7-21) 05/29/18 21:55 Creatinine 0.9 mg/dl (0.7-1.2) 05/29/18 21:55 Est GFR ( Amer) > 60 05/29/18 21:55 Est GFR (Non-Af Amer) > 60 05/29/18 21:55 Random Glucose 101 mg/dL (70-110) 05/29/18 21:55 Calcium 9.2 mg/dL (8.4-10.5) 05/29/18 21:55 Phosphorus 3.2 mg/dL (2.5-4.5) 05/30/18 07:00 Magnesium 2.2 mg/dL (1.7-2.2) 05/30/18 07:00 Total Bilirubin 0.3 mg/dL (0.2-1.3) 05/29/18 21:55 AST 28 U/L (14-36) 05/29/18 21:55 ALT 23 U/L (7-56) 05/29/18 21:55 Alkaline Phosphatase 97 U/L (38-126) 05/29/18 21:55 Lactate Dehydrogenase 469 U/L (333-699) 05/29/18 21:55 Total Creatine Kinase 64 U/L (35-230) 05/29/18 21:55 Troponin I < 0.01 ng/mL 05/30/18 10:15 Total Protein 7.3 g/dL (5.8-8.3) 05/29/18 21:55 Albumin 4.2 g/dL (3.0-4.8) 05/29/18 21:55 Globulin 3.1 gm/dL 05/29/18 21:55 Albumin/Globulin Ratio 1.4 (1.1-1.8) 05/29/18 21:55 Triglycerides 159 mg/dL (35-160) 05/30/18 07:00 Cholesterol 170 mg/dL (130-200) 05/30/18 07:00 LDL Cholesterol Direct 95 mg/dL (0-129) 05/30/18 07:00 HDL Cholesterol 47 mg/dL (29-60) 05/30/18 07:00 TSH 3rd Generation 3.03 mIU/mL (0.46-4.68) 05/30/18 07:00 - Hospital Course Hospital Course: On admission: This is a 73-year-old female with PMH of hypertension, hyperlipidemia, and gastritis, who presents to [facility] complaining of chest pain x1 day. Patient reports that earlier today she was upset because she says she w as owed money by someone who could not pay her, and she states that she needs the money. Patient went to the mall to try and relax, when she began experiencing new-onset burning chest pain that radiates to left shoulder. Patient says the pain was constant and lasted a few hours. Patient rates the pain 6/10 in severity, and she attempted to relieve the pain with baby aspirin, but this did not help. Patient reports has never experienced symptoms like this before. Patient denies any shortness of breath, fever, chills, cough, nausea, vomiting, diarrhea, abdominal pain, or any other complaints at this time. During hospital stay: Patient was administered Aspirin, Lipitor, Lovenox SC, Cozaar during admission. Cardiology was consulted. Troponins were negative x3. ECHO was done which showed EF 58%, normal left ventricle function, mild pulmonary hypertension. EKG was unremarkable. Patient's symptoms resolved and patient was optimized for discharge. Discharge Exam - Additional Findings Additional findings: - Constitutional Appears: Non-toxic, No Acute Distress - Head Exam Head Exam: ATRAUMATIC, NORMOCEPHALIC - Eye Exam Eye Exam: EOMI, Normal appearance, PERRL - ENT Exam ENT Exam: Mucous Membranes Moist, Normal Exam - Neck Exam Neck exam: Positive for: Normal Inspection - Respiratory Exam Respiratory Exam: Clear to Auscultation Bilateral, NORMAL BREATHING PATTERN. absent: Chest Wall Tenderness, Decreased Breath Sounds, Prolonged Expiratory Phase, Rales, Rhonchi - Cardiovascular Exam Cardiovascular Exam: REGULAR RHYTHM, +S1, +S2 - GI/Abdominal Exam GI & Abdominal Exam: Normal Bowel Sounds, Soft. absent: Tenderness - Extremities Exam Extremities exam: Positive for: normal inspection - Neurological Exam Neurological exam: CN II-XII Intact, Oriented x3 - Psychiatric Exam Psychiatric exam: Anxious, Normal Affect, Normal Mood Discharge Plan - Discharge Medications Prescriptions: Aspirin 81 mg PO DAILY 1 Days tab.chew - Follow Up Plan Condition: STABLE Disposition: HOME/ ROUTINE Additional Instructions: Please follow up with your primary medical doctor Dr. Ferguson within 3-5 days. Also follow up with your director of optimization Dr. Ramos within 1 week of discharge. Resume all your home medications as prescribed. Return to ED if your symptoms return. Referrals: Sid Ferguson MD [Staff Provider] - Francisco Ramos MD [Medical Doctor] - <Sara Cervantes - Last Filed: 06/02/18 20:54> Provider - Provider Date of Admission: 05/30/18 00:40 Attending physician: Sara Cervantes DO Consults: 05/30/18 04:15 Cardiology Consult Routine Comment: Consulting Provider: Titus Yañez Consulting Physician: Titus Yañez Reason for Consult: chest pain Hospital Course - Lab Results Lab Results: Most Recent Lab Values WBC 6.6 10^3/uL (4.5-11.0) D 05/29/18 21:55 RBC 3.57 10^6/uL (3.5-6.1) 05/29/18 21:55 Hgb 10.8 g/dL (12.0-16.0) L 05/29/18 21:55 Hct 33.5 % (36.0-48.0) L 05/29/18 21:55 MCV 93.8 fl (80.0-105.0) 05/29/18 21:55 MCH 30.3 pg (25.0-35.0) 05/29/18 21:55 MCHC 32.2 g/dl (31.0-37.0) 05/29/18 21:55 RDW 13.3 % (11.5-14.5) 05/29/18 21:55 Plt Count 218 10^3/uL (120.0-450.0) 05/29/18 21:55 MPV 10.8 fl (7.0-11.0) 05/29/18 21:55 PT 11.3 SECONDS (9.4-12.5) 05/29/18 21:55 INR 1.02 05/29/18 21:55 APTT 38.1 Seconds (26.9-38.3) 05/29/18 21:55 D-Dimer, Quantitative < 200 ng/mlDDU (0-243) 05/30/18 11:00 Sodium 138 mmol/L (132-148) 05/29/18 21:55 Potassium 4.0 mmol/L (3.6-5.0) 05/29/18 21:55 Chloride 104 mmol/L (98-107) 05/29/18 21:55 Carbon Dioxide 28 mmol/L (21-33) 05/29/18 21:55 Anion Gap 11 (10-20) 05/29/18 21:55 BUN 20 mg/dL (7-21) 05/29/18 21:55 Creatinine 0.9 mg/dl (0.7-1.2) 05/29/18 21:55 Est GFR ( Amer) > 60 05/29/18 21:55 Est GFR (Non-Af Amer) > 60 05/29/18 21:55 Random Glucose 101 mg/dL (70-110) 05/29/18 21:55 Calcium 9.2 mg/dL (8.4-10.5) 05/29/18 21:55 Phosphorus 3.2 mg/dL (2.5-4.5) 05/30/18 07:00 Magnesium 2.2 mg/dL (1.7-2.2) 05/30/18 07:00 Total Bilirubin 0.3 mg/dL (0.2-1.3) 05/29/18 21:55 AST 28 U/L (14-36) 05/29/18 21:55 ALT 23 U/L (7-56) 05/29/18 21:55 Alkaline Phosphatase 97 U/L (38-126) 05/29/18 21:55 Lactate Dehydrogenase 469 U/L (333-699) 05/29/18 21:55 Total Creatine Kinase 64 U/L (35-230) 05/29/18 21:55 Troponin I < 0.01 ng/mL 05/30/18 10:15 Total Protein 7.3 g/dL (5.8-8.3) 05/29/18 21:55 Albumin 4.2 g/dL (3.0-4.8) 05/29/18 21:55 Globulin 3.1 gm/dL 05/29/18 21:55 Albumin/Globulin Ratio 1.4 (1.1-1.8) 05/29/18 21:55 Triglycerides 159 mg/dL (35-160) 05/30/18 07:00 Cholesterol 170 mg/dL (130-200) 05/30/18 07:00 LDL Cholesterol Direct 95 mg/dL (0-129) 05/30/18 07:00 HDL Cholesterol 47 mg/dL (29-60) 05/30/18 07:00 TSH 3rd Generation 3.03 mIU/mL (0.46-4.68) 05/30/18 07:00 Attending/Attestation - Attestation I have personally seen and examined this patient.: Yes I have fully participated in the care of the patient.: Yes I have reviewed all pertinent clinical information, including history, physical exam and plan: Yes Notes (Text): Please note this DC summary is for 05/31/18 Patient seen and examined by me with resident at approximately 8:50AM and prior to discharge on 05/31/18. Case including discharge plan discussed with resident. Agree with above with following additions/corrections. Patient is a 73-year-old female with past medical history significant for hypertension, hyperlipidemia, and gastritis that presented to the emergency room complaining of chest pain. Please see H&P for full details. Patient was found to have atypical chest pain, hypertension, and hyperlipidemia. Chest xray per radiologist showed no active disease. Patient was continued on ASA. Troponins were within normal limits. Patient was seen by cardiology. ACS was ruled out. 2D echo per director of optimization showed left ventricle is normal size, LV systolic function normal, left ventricular EF is within normal range, EF 58%, right ventricular size normal, right ventricular systolic function is normal, left atrium size is normal, right atrium size is normal, aortic valve is normal in structure, mitral valve is normal in structure, mitral regurgitation is trace to mild, tricuspid valve is normal in structure, mild tricuspid regurgitation, mild pulmonary hypertension, no pericardial effusion. Patient was continued on losartan on hypertension. Patient was continued on lipitor for hyperlipidemia. Chest pain was likely secondary to anxiety. Chest pain resolved. Patient was cleared for discharge by cardiology. Patient was discharged home. On the day of discharge, patient stated she was feeling much better. Chest pain resolved. No palpitations. No shortness of breath. Patient was tolerating diet. No nausea or vomiting. No abdominal pain. Patient denied headaches or dizziness. No fevers or chills. No dysuria. No diarrhea or constipation. Physical exam: General: Awake and alert lying in bed in no acute distress HEENT: Normocephalic, atraumatic. Extraocular muscles intact, pupils equal and reactive, no scleral icterus. Oropharynx is pink moist. No pharyngeal erythema or exudate appreciated. Neck is supple. Cardiovascular: Regular rhythm. Normal S1 and S2. No murmurs, rubs, or gallops appreciated Pulmonary: Normal respiratory effort. No rhonchi, rales, or wheezing appreciated. Gastrointestinal: Soft, nondistended. Nontender. Positive bowel sounds all 4 quadrants. No guarding. Musculoskeletal: Moves all extremities. No calf tenderness. No edema appreciated. Positive anterior right sided chest wall tenderness. Central nervous system: AAOx3. CN 2-12 grossly intact. 5/5 muscle strength all extremities. Dermatologic: Skin warm and dry. Please see chart for full details. Follow up instructions: Patient to follow up with PMD within 3-5 days. Follow up with director of optimization within one week of discharge. All instructions explained to the patient in detail. Patient both understands and agrees to all instructions. Written instructions also given.
== END 2018-05-31 14:01 | disposition home or self-care (01) ==
LOC: ED 21:07 → ERH 05-30 00:40 → 3RNO 05-30 03:23
PROVIDERS: ADMIT Hospitalist; ATTEND Hospitalist
DX: R07.89 Other chest pain (principal); E78.5 Hyperlipidemia, unspecified; I10 Essential (primary) hypertension; F41.9 Anxiety disorder, unspecified; I27.20 Pulmonary hypertension, unspecified; K21.9 Gastro-esophageal reflux disease without esophagitis; Z79.82 Long term (current) use of aspirin; Z79.899 Other long term (current) drug therapy; Z87.891 Personal history of nicotine dependence; K29.70 Gastritis, unspecified, without bleeding; Z98.51 Tubal ligation status; Z88.0 Allergy status to penicillin; M19.90 Unspecified osteoarthritis, unspecified site
CPT/HCPCS: 36415; 71045; 80053; 80061; 82550; 83615; 83735; 84100; 84443; 84484; 85027; 85378; 85610; 85730; 93005; 93306; 96372; 96374; 96375; 99285; C9113; G0378; J1650